=== PATIENT | male | born 1995 | race Caucasian/White ===

== ENCOUNTER 2017-03-05 15:31 | Inpatient (IN) | payer BC, OTHER ==
[~2017-03-05] VITALS: Ht 182.9 cm; Wt 87.5 kg
--- NOTE | 2017-03-05 20:35 | NUR ---
Pre-Admission Note: Patient assessed in intake office at 20:35 on 03/05/2017. Patient is ambulatory with steady gait, stable, A&OX4, speech is clear. Patient states that he is here to safely detox from benzodiazepines and opiates. Pt reports using 10mg Xanax and 300mg Roxicodone daily for 5 months; pt also reports intermittent use of heroin, methamphetamine, cocaine, and ETOH. Patient states that last use was on 03/03/17 when he was admitted to detox at [facility]. Patient noted to be guarded, anxious, fine tremor, pupils 5mm. VS: 143/92, 75, 98.4, 16, 100% Spo2 on RA. Patient reports 7/10 generalized pain at this time. Patient reports NKDA/NKFA. Patient instructed on unit protocol of vitals Q4H and COWS/CIWA assessments. Patient verbalized understanding and agreement. Patient also instructed on policy regarding destruction of any controlled substances/prescriptions brought to facility, and handling of all medications. Patient verbalized understanding and agreement. Will complete admission assessment when patient is brought up to unit.
--- NOTE | 2017-03-05 20:45 | NUR ---
ADMISSION NOTE: NEW ADMISSION IS A 21 YO MALE ON THE SERENITY FLOOR AT 20:45 ON 03/05/17; PRE-ADMISSION ASSESSMENT COMPLETED IN INTAKE OFFICE. UDS SPECIMEN COLLECTED IN INTAKE. VS: 143/92, 75, 98.4, 16, 100% SPO2 ON RA. COWS IS 11, CIWA IS 13: PT REPORTS ANXIETY, AGITATION, DIAPHORESIS, SENSITIVITY TO LIGHT AND SOUND, TREMOR, GENERALIZED PAIN, HEADACHE. HEIGHT IS 60 AND WEIGHT BY STANDING SCALE IS 193 LBS. PT REPORTS NKDA/NKFA. PT DENIES HAVING A PCP. PT ADMITTED UNDER THE CARE OF DR MEREDITH. PT REPORTS THE FOLLOWING SUBSTANCE USE: XANAX: PT REPORTS USING 10MG DAILY FOR 5 MONTHS. PATIENT REPORTS BEGINNING TO USE XANAX ON A DAILY BASIS 4 YEARS AGO. LAST USE WAS 10MG ON 03/03/17 BEFORE ADMITTED TO [facility] FOR DETOX. PT WAS ADMINISTERED ATIVAN AND PHENOBARBITAL WHILE INPATIENT AT [facility] FROM 03/03/17 TO 03/05/17. ROXICODONE: PT REPORTS TAKING 300MG DAILY FOR 5 MONTHS. PATIENT REPORTS FIRST USE OF ROXICODONE WAS 2 YEARS AGO. LAST USE WAS 300MG ON 03/03/17 BEFORE ADMITTED TO [facility] FOR DETOX. HEROIN: PT REPORTS USING < 0.5GM INTERMITTENTLY FOR 5 MONTHS WHEN ROXICODONE IS NOT AVAILABLE. COCAINE: PT REPORTS USING INTERMITTENTLY FOR 5 MONTHS. ETOH: PT REPORTS DRINKING A LITTLE INTERMITTENTLY FOR 5 MONTHS. METHAMPHETAMINE: PT REPORTS USING INTERMITTENTLY FOR 5 MONTHS. PT REPORTS SMOKING 10 CIGARETTES DAILY FOR 3 YEARS. WRITTEN SMOKING CESSATION EDUCATION PROVIDED. PT VERBALIZES UNDERSTANDING. PT REPORTS ADMISSION TO TREATMENT/DETOX: [facility] DETOX 03/03/17 TO 03/05/17. [facility] IN [place], [place] FOR 1 MONTH IN AUGUST 2016 PT REPORTS PMHX OF ANXIETY, DEPRESSION, WITHDRAWAL-INDUCED SZ (07/2016), LEFT ACL SURGICAL REPAIR (2012), RIGHT HAND COMPOUND FX (2010), NOSE FX (2010). HOME MEDICATIONS HAVE BEEN RECONCILED: PT REPORTS TAKING SEROQUEL 300MG HS BUT DID NOT BRING RX BOTTLE. PT IS AMBULATORY WITH STEADY GAIT. A&OX4 AND NOTED TO BE GUARDED, DIAPHORETIC AND FLUSHED WITH FINE TREMOR. SKIN ASSESSMENT: TWO SCABS ON RIGHT HAND, NO S/S INFECTION, PHOTO PLACED IN CHART. PT DENIES CURRENT OR HX OF SI/HI. LUNGS ARE CTA THROUGHOUT, RESPIRATIONS ARE EVEN AND UNLABORED. PT DENIES COUGH; LUNGS CTA. HEART SOUNDS REGULAR. BOWEL SOUNDS ACTIVE IN ALL QUADRANTS. ABDOMEN IS SOFT, NON-DISTENDED, NON-TENDER.
[2017-03-05 20:50] VITALS: BP 143/92
[2017-03-05] MEDS ORDERED: LORAZEPAM 1 MG TABLET PO PRN ×2 (22:15)
[2017-03-05] MEDS ORDERED: ACETAMINOPHEN 325 MG TABLET PO PRN (22:15)
[2017-03-05] MEDS ORDERED: LORAZEPAM 2 MG/1 ML VIAL IM PRN (22:15)
[2017-03-05] MEDS ORDERED: MIRALAX 17 GM POWD.PACK PO PRN (22:15)
[2017-03-05] MEDS ORDERED: LOPERAMIDE HCL 2 MG CAPSULE PO PRN ×2 (22:15)
[2017-03-05] MEDS ORDERED: ONDANSETRON 4 MG/2 ML VIAL IM PRN (22:15)
[2017-03-05] MEDS ORDERED: MAGNESIUM HYDROXIDE 30 ML LIQUID UDC PO PRN (22:15)
[2017-03-05] MEDS ORDERED: ONDANSETRON ODT 4 MG TAB.RAPDIS SL PRN (22:15)
[2017-03-05] MEDS ORDERED: BUPRENORPHINE HCL 2 MG TAB.SUBL SL PRN (22:15)
[2017-03-05] MEDS ORDERED: DICYCLOMINE HCL 20 MG TABLET PO PRN (22:15)
[2017-03-05] MEDS ORDERED: MAG HYDROX/AL HYDROX/SIMETH 30 ML LIQUID UDC PO PRN (22:15)
[2017-03-05] MEDS ORDERED: diphenhydrAMINE 50 MG CAPSULE PO PRN (22:15)
--- NOTE | 2017-03-05 22:22 | NUR ---
Subutex and Ativan ONCE: Upon admission, pt's COWS is 11 and CIWA is 13: pt complains of diaphoresis, myalgia, restlessness, tremor, bone and joint pain, anxiety, agitation, sensitivity to light and sound, headache. Administered Subutex 4mg ONCE and Ativan 2mg ONCE as ordered. Will continue to monitor.
[2017-03-05] MEDS ORDERED: QUET300T2 PO (22:28)
[2017-03-05 22:29] LABS: *AMPHETAMINE, URINE NEGATIVE (NEGATIVE); *BARBITURATE, URINE POSITIVE (NEGATIVE); *CANNABINOID, URINE POSITIVE (NEGATIVE); *COCCAINE, URINE NEGATIVE (NEGATIVE); *OPIATE, URINE NEGATIVE (NEGATIVE); *PHENCYCLIDINE SCREEN,URINE NEGATIVE (NEGATIVE)
[2017-03-05] MEDS ORDERED: LORAZEPAM 1 MG TABLET ONE (22:29)
[2017-03-05] MEDS ORDERED: LORAZEPAM 1 MG TABLET PO ONE (22:30)
[2017-03-05] MEDS ORDERED: BUPRENORPHINE HCL 2 MG TAB.SUBL SL ONE ×2 (22:30)
--- NOTE | 2017-03-05 22:52 | NUR ---
Subutex Reassessment: COWS score decreased from 11 to 5 thirty minutes after Subutex 4mg SL ONCE administration. Pt denies pain at this time and reports decrease in diaphoresis and restlessness.
--- NOTE | 2017-03-05 23:22 | NUR ---
Ativan Reassessment: Patient reports mild decrease in tremor, diaphoresis, anxiety. CIWA decreased from 13 to 10 one hour after Ativan 2mg PO ONCE administration. Pt refuses PRN Clonidine and PRN Vistaril for reducing anxiety and diaphoresis.
[2017-03-05 23:36] LABS: ETHANOL < 3 MG/DL (0-0)
[2017-03-05 23:45] LABS: ALANINE AMINOTRANSFERASE 21 U/L (16-63); ALKALINE PHOSPHATASE 82 U/L (50-136); ASPARTATE AMINOTRANSFERASE 15 U/L (15-37); BILIRUBIN,TOTAL 0.4 mg/dL (0.2-1.0); CARBON DIOXIDE 28 mmol/L (21-32); CHLORIDE 105 mmol/L (98-107); GLUCOSE 112 mg/dL (74-106); MAGNESIUM 2.1 mg/dL (1.8-2.4); POTASSIUM 3.2 mmol/L (3.5-5.1); TOTAL PROTEIN, SERUM 7.3 g/dL (6.4-8.2); UREA NITROGEN, BLOOD 12 mg/dL (7-18)
[2017-03-05 23:46] LABS: BASOPHILS % (AUTO) 0.3 % (0.0-2.0); EOSINOPHILS # (AUTO) 0.2 K/uL (0.0-0.7); EOSINOPHILS % (AUTO) 1.5 % (0.0-7.0); HEMATOCRIT 43.1 % (40-50); HEMOGLOBIN 14.9 G/DL (14.0-18.0); LYMPHOCYTES # (AUTO) 2.5 K/UL (0.8-4.8); LYMPHOCYTES % (AUTO) 24.4 % (20.5-51.5); MEAN CORPUSCULAR HEMOGLOBIN 29.6 UUG (27.0-31.0); MEAN CORPUSCULAR HGB CONC 35 g/dL (32.0-37.0); MEAN CORPUSCULAR VOLUME 85.8 FL (82.0-92.0); MONOCYTES # (AUTO) 0.4 K/UL (0.1-1.30); MONOCYTES % (AUTO) 4.1 % (0.0-11.0); NEUTROPHILS # (AUTO) 7.3 K/UL (1.8-8.9); NEUTROPHILS % (AUTO) 69.7 % (38.5-71.5); PLATELET COUNT (AUTO) 311 K/UL (150-450); RED BLOOD CELL COUNT(AUTO) 5.03 MIL/UL (4.7-6.1); WHITE BLOOD COUNT (AUTO) 10.4 K/UL (4.0-11.2)
[2017-03-05 23:56] LABS: THYROID STIMULATING HORMONE 0.805 mIU/mL (0.358-3.740)
[2017-03-06] VITALS: BP 101/51
[2017-03-06] MEDS: METHOCARBAMOL 750 MG TABLET PO PRN ×2 (01:24→08:54)
--- NOTE | 2017-03-06 01:24 | NUR ---
PRN Robaxin: Patient complains of myalgia in back and legs. Administered PRN Robaxin as ordered. Will continue to monitor.
[2017-03-06] MEDS ORDERED: HYDROXYZINE PAMOATE 25 MG CAPSULE ONE (01:33)
[2017-03-06] MEDS ORDERED: METHOCARBAMOL 750 MG TABLET ONE (01:33)
--- NOTE | 2017-03-06 02:25 | NUR ---
PRN Reassessment: Patient reports decrease in myalgia. Patient denies pain at this time. PRN Robaxin effective. Will continue to monitor.
[2017-03-06 04:00] VITALS: BP 149/85
[2017-03-06] MEDS: CLONIDINE HCL 0.1 MG TABLET PO PRN ×2 (04:48→12:38)
--- NOTE | 2017-03-06 04:48 | NUR ---
PRN Clonidine: Patient complains of increased anxiety. Administered PRN Clonidine as ordered. Will continue to monitor.
[2017-03-06] MEDS ORDERED: CLONIDINE HCL 0.1 MG TABLET ONE (04:55)
--- NOTE | 2017-03-06 05:50 | NUR ---
PRN Reassessment: Patient is in bed with eyes closed. Respirations are even and unlabored. No s/s of acute distress noted. PRN Clonidine effective AEB pt's ability to rest. Will continue to monitor.
[2017-03-06] MEDS ORDERED: POTASSIUM CHLORIDE 20 MEQ TAB.PRT.SR PO ONE ×2 (06:00→09:00)
--- NOTE | 2017-03-06 06:53 | NUR ---
End of Shift Note: Pt is a 21 y/o male admitted to [facility] last night for medically-supervised withdrawal from benzodiazepines and opiates. PMHx: anxiety, depression, withdrawal-induced SZ (07/2016), left ACL surgical repair (2012), right hand fx and nose fx (2010). Full code status. Pt reports NKDA/NKFA. Pt is on a regular diet. Pt reports taking Xanax 10mg/day and Roxicodone 300mg/day for 5 months; pt also reports intermittent use of cocaine, methamphetamine, ETOH, and heroin. Pt is to start 5-day Subutex and Ativan tapers today. One-time orders for Subutex and Ativan received and administered for COWS=11, CIWA=13. Subutex was effective and reduced COWS=5, Ativan reduced CIWA=10 but pt refused Vistaril for anxiety not relieved by Ativan. PRN Robaxin was given for myalgia and PRN Clonidine was given for anxiety. Last COWS=3, CIWA=4 at 04:00. V/S stable throughout shift, with increased BP of 143/92 upon admission and 149/85 at 04:00, and HR of 95 at 04:00. Total fluid intake this shift: 1091 ml; output: urine x 2 and BM x 0. Pt is currently in bed, slept 1 hour this shift, all needs have been attended and met. Pt endorsed to day shift nurse.
[2017-03-06 08:00] VITALS: BP 150/92
--- NOTE | 2017-03-06 08:00 | NUR ---
START OF SHIFT Pt 21 y/o male admitted for bzo/ opiate use d/o. Pt received in room on bed awake watching television. Pt alert and oriented to name, place, and time. Perrla. Skin warm and slightly moist to touch. Respirations even and unlabored. Bilateral hand tremors noted. It was reported that pt slept for 1 hours last night. Bed on lowest position with side rails x2 up for safety. Call light within reach. No distress noted.
--- NOTE | 2017-03-06 08:45 | NUR ---
PRN Pt with c/o generalized body aches 03/22. Robaxin po prn per MD order given and tolerated well.
--- NOTE | 2017-03-06 08:45 | NUR ---
PRN Pt with c/o stomach cramps. Bentyl po prn per MD order.
[2017-03-06] MEDS: MULTIVITAMINS,THERAPEUTIC TABLET PO SCH (08:54)
[2017-03-06] MEDS: LIDOCAINE 5% PATCH TD SCH (08:54)
[2017-03-06] MEDS ORDERED: TUBERCULIN,PURIF.PROT.DERIV. 5 TU/0.1 ML TEST ID ONE (09:00)
[2017-03-06] MEDS ORDERED: PNEUMOCOCCAL 23-VAL P-SAC VAC 0.5 ML VIAL IM ONE (09:00)
[2017-03-06] MEDS ORDERED: GABAPENTIN 300 MG CAPSULE PO SCH (09:00)
--- NOTE | 2017-03-06 09:45 | NUR ---
PRN EVAL Pt states is not experiencing any stomach cramps at this time.
--- NOTE | 2017-03-06 09:45 | NUR ---
MINAL SALMON Pt observed in room on bed watching television.
[2017-03-06] MEDS: BUPRENORPHINE HCL 2 MG TAB.SUBL SL SCH ×4 (09:56→21:20)
[2017-03-06] MEDS: LORAZEPAM 1 MG TABLET PO SCH ×4 (09:56→21:21)
[2017-03-06 12:00] VITALS: BP 150/92
--- NOTE | 2017-03-06 12:38 | NUR ---
PRN Pt states feels anxious. Catapres po prn per MD order given and tolerated well.
--- NOTE | 2017-03-06 13:38 | NUR ---
MINAL SALMON Pt observed in room on bed watching television.
[2017-03-06] MEDS: GABAPENTIN 300 MG CAPSULE PO SCH ×2 (14:53→21:21)
[2017-03-06 16:00] VITALS: BP 120/76
--- NOTE | 2017-03-06 18:43 | NUR ---
END OF SHIFT Pt 21 y/o male admitted for bzo / opiate use d/o. Pt alert and oriented to name, place, and time. Perrla. Skin warm and slightly moist to touch. Respirations even and unlabored. Bilateral hand tremors noted. Pt mostly isolative to room this morning, but did attend group activity in the afternoon. Pt was seen by Dr. Paz. Pt medication compliant and tolerated well. No ASE noted. Bed on lowest position with side rails x2 up for safety. Call light within reach. No distress noted at this time.
--- NOTE | 2017-03-06 19:20 | NUR ---
START OF SHIFT Received report from day shift nurse. Pt is lying in bed resting. He is a 21 yo male admitted to [facility] on 03/05 for BZD and opioid dependence. He is A&O x4 and ambulatory. NKA, full code status, and on a regular diet. He has a PMH of seizure r/t withdrawal 07/2016, left ACL surgery 2012, R hand compound fracture 2010, nose fracture, anxiety, and depression. ON admission he reported using Xanax 10mg per day and roxycodone 30mg per day. He intermittently uses cocaine, methamphetamine, ETOH, and heroin. Pt started a 5 day Ativan and 5 day Subutex taper on 03/06. Upon entering pt's room he reports hot and cold flashes, pounding heart, headache, and muscle aches. Tapers due tonight with PRN's available for management of withdrawal symptoms. Fall and seizure precautions in place. Bed is down with call light in reach. . Addendum: 03/07/17 at 2000 by TRACEY FAIRBANKS RN Incorrect entry date.
[2017-03-06 20:00] VITALS: BP 117/73
--- NOTE | 2017-03-06 20:00 | NUR ---
Start of Shift Note: Report received from day shift nurse. Pt is a 21 yo male admitted on 03/05/17 for medically-supervised withdrawal from benzodiazepines and opiates. Pt reports taking 10mg Xanax and 300mg Roxicodone daily for 5 months; pt also reports intermittent use of cocaine, methamphetamine, ETOH, and heroin. Pt is on day 1 of 5-day Subutex and Ativan tapers. Pt received with last COWS=5/CIWA=1, and PRNs Bentyl, Robaxin, and Clonidine were given during day shift. Pt is full code status. Pt reports NKDA/NKFA. Pt is on a regular diet. PMHx: anxiety, depression, withdrawal-induced SZ (07/2016), left ACL surgical repair (2012), right hand fx and nose fx (2010). Pt received in room, and reports chills, stomach cramps, bone aches, anxiety, tremor, restlessness. Bed is in low position and locked, side rails up x2, call light within reach. Will continue to monitor.
[2017-03-06] MEDS ORDERED: QUETIAPINE FUMARATE 100 MG TABLET PO SCH (21:00)
[2017-03-06] MEDS: QUETIAPINE FUMARATE 200 MG TABLET PO SCH (22:34)
--- NOTE | 2017-03-06 22:35 | NUR ---
Seroquel Late: Patient requests to take Seroquel late so that he has time to shower and prepare for bed. 21:00 scheduled Seroquel administered late as per pt request.
[2017-03-07] VITALS (9 sets, daily range): BP systolic 101–146; BP diastolic 47–87
--- NOTE | 2017-03-07 04:00 | NUR ---
COWS/CIWA Deferred: COWS/CIWA is deferred for sleep. V/S stable. Bed is in low position and locked, side rails up x2, call light within reach. Will continue to monitor. Addendum: 03/07/17 at 0503 by TERESA SERRATO RN Amended: Links added.
[2017-03-07 05:09] LABS: HEPATITIS B SURFACE AG Negative (Negative)
--- NOTE | 2017-03-07 07:03 | NUR ---
End of Shift Note: Pt is a 21 yo male admitted to [facility] on 03/05/17 for medically-supervised withdrawal from benzodiazepines and opiates. PMHx: anxiety, depression, withdrawal-induced seizure (07/2016), left ACL surgical repair (2012), right hand and nose fx (2010). NKDA/NKFA, full code, regular diet. Pt reports taking 10mg Xanax and 300mg Roxicodone daily for 5 months; pt also reports occasional use of cocaine, methamphetamine, ETOH, and heroin. Pt is to start the second day of 5-day Subutex and Ativan tapers. Scheduled medication regime effectively managed s/s of withdrawal this shift, and no PRN medications were necessary. Last COWS=4, CIWA=2 at 00:00. V/S stable throughout shift, with increased HR of 90 at 00:00. Total fluid intake this shift: 1450 ml; output: urine x 2 and BM x 0. Pt is currently in bed and slept 8 hours this shift. All needs have been attended and met. Pt endorsed to day shift nurse. Addendum: 03/07/17 at 0713 by TERESA SERRATO RN Correction: patient slept 4 hours
--- NOTE | 2017-03-07 08:00 | NUR ---
START OF SHIFT Pt 21 y/o male admitted for bzo/ opiate use d/o. Pt received in room on bed with eyes closed resting, but easily arousable to name. Pt alert and oriented to name, place, and time. Perrla. Skin warm and slightly moist to touch. Respirations even and unlabored. Bilateral hand tremors noted. Bed on lowest position with side rails x2 up for safety. Call light within reach. No distress noted at this time.
[2017-03-07 08:29] LABS: CREATININE 0.9 mg/dL (0.6-1.3); PHOSPHOROUS 4.2 mg/dL (2.5-4.9); POTASSIUM 3.9 mmol/L (3.5-5.1)
[2017-03-07] MEDS: LIDOCAINE 5% PATCH TD SCH (08:51)
[2017-03-07] MEDS: MULTIVITAMINS,THERAPEUTIC TABLET PO SCH (08:52)
[2017-03-07] MEDS: GABAPENTIN 300 MG CAPSULE PO SCH ×2 (08:52→15:16)
[2017-03-07] MEDS: LORAZEPAM 1 MG TABLET PO SCH ×3 (08:52→21:23)
[2017-03-07] MEDS: BUPRENORPHINE HCL 2 MG TAB.SUBL SL SCH ×3 (08:52→21:24)
[2017-03-07] MEDS ORDERED: LORAZEPAM 1 MG TABLET PO ONE ×2 (12:00→17:00)
--- NOTE | 2017-03-07 17:13 | NUR ---
PRN Pt with ciwa=7. Tremors of bilateral hands noted. Pt with c/o anxiety. Pt states he feels uneasy, waking up in shakes. Dr. Paz made aware with new order for ativan 2mg po x1 dose.
--- NOTE | 2017-03-07 18:31 | NUR ---
PRN EVAL Pt with ciwa =4.
--- NOTE | 2017-03-07 18:50 | NUR ---
END OF SHIFT Pt 21 y/o male admitted for bzo opiate dependence. Pt alert and oriented to name, place, and time. Perrla. Skin warm and slightly moist to touch. Respirations even and unlabored. Pt observed isolative to room with minimal peer interaction throughout the day. pt did not attend group activity today. Pt was seen by Dr. Paz today. Medication compliant and tolerated well. No ASE noted. Bed on lowest position with side rails x 2 for safety. Call light wtihin reach. No distress noted at this time.
--- NOTE | 2017-03-07 19:20 | NUR ---
START OF SHIFT Received report from day shift nurse. Pt is lying in bed resting. He is a 21 yo male admitted to [facility] on 03/05 for BZD and opioid dependence. He is A&O x4 and ambulatory. NKA, full code status, and on a regular diet. He has a PMH of seizure r/t withdrawal 07/2016, left ACL surgery 2012, R hand compound fracture 2010, nose fracture, anxiety, and depression. ON admission he reported using Xanax 10mg per day and roxycodone 30mg per day. He intermittently uses cocaine, methamphetamine, ETOH, and heroin. Pt started a 5 day Ativan and 5 day Subutex taper on 03/06. Upon entering pt's room he reports hot and cold flashes, pounding heart, headache, and muscle aches. Tapers due tonight with PRN's available for management of withdrawal symptoms. Fall and seizure precautions in place. Bed is down with call light in reach. .
[2017-03-07] MEDS: METHOCARBAMOL 750 MG TABLET PO PRN (19:29)
[2017-03-07] MEDS: CLONIDINE HCL 0.1 MG TABLET PO PRN (19:30)
[2017-03-07] MEDS: IBUPROFEN 600 MG TABLET PO PRN (19:30)
--- NOTE | 2017-03-07 19:30 | NUR ---
PRN Clonidine, Robaxin, and Motrin Pt is lying in bed and reports "my heart feels like its pounding". B/P 143/80 and HR 107. He also reports generalized muscle aches / and headache. Pt denies dizziness or SOB. PRN Clondine, Robaxin, and Motrin administered Addendum: 03/07/17 at 2004 by TRACEY FAIRBANKS RN JOHN 6 and JÚNIOR 7
--- NOTE | 2017-03-07 20:30 | NUR ---
PRN Clonidine, Robaxin, and Motrin reassessment PRN Clonidine, Robaxin, and Motrin effective. Pt is lying in bed resting with eyes closed. Respirations even and unlabored. B/P 134/62 and HR 94. COWS and CIWA deferred due to sleep.
[2017-03-07] MEDS ORDERED: GABAPENTIN 300 MG CAPSULE PO SCH (21:00)
[2017-03-07] MEDS: QUETIAPINE FUMARATE 200 MG TABLET PO SCH (23:30)
--- NOTE | 2017-03-07 23:30 | NUR ---
Late Seroquel Administration Pt requested to have Seroquel closer to bed time.
[2017-03-07] MEDS: HYDROXYZINE PAMOATE 25 MG CAPSULE PO PRN (23:37)
--- NOTE | 2017-03-07 23:38 | NUR ---
PRN Vistaril administration Pt c/o feeling anxious, with chills, and sweating. B/P 146/80 and HR 111. PRN Vistaril administered.
[2017-03-08] VITALS (7 sets, daily range): BP systolic 101–146; BP diastolic 59–83
--- NOTE | 2017-03-08 00:41 | NUR ---
RN note one-time Ativan Pt noted to be anxious and verbalized "I keep on jolting and waking up" Restlessness noted. Contacted Dr. Paz and he ordered a one-time of Ativan 2 mg PO. Primary nurse to administer.
[2017-03-08] MEDS ORDERED: LORAZEPAM 1 MG TABLET ONE (00:44)
[2017-03-08] MEDS ORDERED: LORAZEPAM 1 MG TABLET PO ONE (00:45)
--- NOTE | 2017-03-08 00:49 | NUR ---
One time Ativan Administered per MD orders. COWS 7 and CIWA 6.
--- NOTE | 2017-03-08 01:49 | NUR ---
One time Ativan reassessment One time Ativan effective. Pt is lying comfortably in bed resting with eyes closed. Respirations even and unlabored. Safety measures in place.
--- NOTE | 2017-03-08 07:12 | NUR ---
END OF SHIFT Report provided to day shift nurse. Pt is lying in bed resting. He is a 21 yo male admitted to [facility] on 03/05 for BZD and opioid dependence. He is A&O x4 and ambulatory. NKA, full code status, and on a regular diet. He has a PMH of seizure r/t withdrawal 07/2016, left ACL surgery 2012, R hand compound fracture 2010, nose fracture, anxiety, and depression. On admission he reported using Xanax 10mg per day and roxycodone 30mg per day. He intermittently uses cocaine, methamphetamine, ETOH, and heroin. Pt started a 5 day Ativan and 5 day Subutex taper on 03/06. PRN Clonidine, Robaxin, Motrin, Vistaril, and one time Ativan administered. Pt has occasional mild tachycardia and difficulty relaxing to fall asleep. Last COWS 7 and CIWA 6. He drank 1484mL and slept for 8 hours. Fall and seizure precautions in place. Bed is down with call light in reach.
--- NOTE | 2017-03-08 07:32 | NUR ---
START OF SHIFT NOTE: Received report from hourly shift nurse. Pt is a 21 yo male admitted 03/05/17 for BZD and opioid dependence. Pt is on a 5 day Subutex and 5 day Ativan taper. Tolerating well. Color good, skin warm and dry. Respirations even and unlabored. Resting in bed at this time. Safety precautions observed. Call light within reach.
[2017-03-08] MEDS: MULTIVITAMINS,THERAPEUTIC TABLET PO SCH (08:28)
[2017-03-08] MEDS: LIDOCAINE 5% PATCH TD SCH (08:29)
[2017-03-08] MEDS: GABAPENTIN 300 MG CAPSULE PO SCH ×3 (08:29→20:42)
[2017-03-08] MEDS ORDERED: BUPRENORPHINE HCL 2 MG TAB.SUBL SL SCH (09:00)
[2017-03-08] MEDS ORDERED: LORAZEPAM 1 MG TABLET PO SCH (09:00)
--- NOTE | 2017-03-08 09:48 | NUR ---
VSS COWS 8 CIWA 8 c/o anxiety, sweating, muscle aches
[2017-03-08] MEDS: LORAZEPAM 1 MG TABLET PO SCH ×3 (13:46→20:43)
[2017-03-08] MEDS: METHOCARBAMOL 750 MG TABLET PO PRN (15:10)
[2017-03-08] MEDS: BACLOFEN 10 MG TABLET PO SCH ×2 (15:10→20:42)
[2017-03-08] MEDS: BUPRENORPHINE HCL 2 MG TAB.SUBL SL SCH ×2 (15:10→20:42)
--- NOTE | 2017-03-08 15:12 | NUR ---
Pt c/o muscle aches. Robaxin 750mg po prn given.
--- NOTE | 2017-03-08 16:15 | NUR ---
Pt states muscle aches improved after Robaxin po prn
--- NOTE | 2017-03-08 18:57 | NUR ---
START OF SHIFT NOTE: Patient endorsed by day shift nurse in stable condition. Report received. Patient is a 21 years old male admitted to [facility] on 03/05/2017 for Benzo/Opioid dependence, placed on 5 day Ativan and 5 day Subutex Taper. Patient tolerated well. Patient remains with therapeutic plan, medications, and diet regime. NKA, Regular Diet, Full Code, Seizures and Fall Precautions. The patient reports a History of Seizures r/t withdrawal. At the time of endorsement, patient is in the room is alert and oriented x4. Speech is clear and soft. COWS 5, CIWA 6. The patient reported the following symptoms of withdrawal: anxiety, agitation, nervousness, diaphoresis, abdominal cramps, headache, restless legs, tremors, and fatigue. Patient denies SI/HI. VS WNL. Breathing is even and unlabored. Patient denies SOB and chest pain. Abdomen is soft, non-distended. Bowel Sounds is active in all x 4 quadrants. Last BM was "03/08/17 at 11:00". Patient has healed scab on the right hand. Skin is warm and moist by tough. Encouraged to fluids intake, as tolerated. Encouraged to attend group activities. All needs met. Safety measures in place by hospital policy: Call light within reach, bed in the lowest position and lock, padded rails up x2. Will continue to monitor closely.
--- NOTE | 2017-03-08 18:57 | NUR ---
END OF SHIFT NOTE: Report given to nightclub manager nurse. Pt is a 21 yo male admitted 03/05/17 for BZD and opioid dependence. Pt is on a 5 day Subutex and 5 day Ativan taper. Tolerating well. Color good, skin warm and dry. Respirations even and unlabored. Vital signs have remained stable throughout shift. Last COWS 4 CIWA 6 @ 1700. Robaxin 750mg po prn @ 1500. Resting in bed at this time. Safety precautions observed. Call light within reach.
[2017-03-08] MEDS: QUETIAPINE FUMARATE 200 MG TABLET PO SCH (20:42)
[2017-03-09] VITALS (7 sets, daily range): BP systolic 112–148; BP diastolic 62–84
--- NOTE | 2017-03-09 07:13 | NUR ---
END OF SHIFT NOTE: Patient endorsed to day shift nurse in stable condition. Report given. Patient is a 21 years old male admitted to [facility] on 03/05/2017 for Benzo/Opioid dependence, placed on 5 day Ativan and 5 day Subutex Taper. Patient tolerated well. Patient remains with therapeutic plan, medications, and diet regime. NKA, Regular Diet, Full Code, Seizures and Fall Precautions. The patient reports a History of Seizures r/t withdrawal on " 07/2016". During the mine shifter COWS decreased from 5 to 4, CIWA decreased from 6 to 3. Patient presented with the following symptoms of withdrawal: Anxiety, agitation, nervousness, diaphoresis, abdominal cramps, N/V, mild headache, restless legs, tremors, and fatigue. Patient denies SI/HI. VS WNL. Breathing is even and unlabored. Patient denies SOB and chest pain. Patient has healed scab on the right hand. Skin is warm and moist by tough. Encouraged to fluids intake, as tolerated. Encouraged to attend group activities. Patient slept 8 hours 30 minutes, intake 988 ml, voided x3, stool x1. All needs met. Safety measures in place by hospital policy: Call light within reach, bed in the lowest position and lock, padded rails up x2.
--- NOTE | 2017-03-09 07:40 | NUR ---
START OF SHIFT NOTE Received report from night nurse, 21 year old male admitted for Benzo/Opioid dependence. NKA, full code status, and on a regular diet. Pt has a PMH of seizure r/t withdrawal 07/2016, left ACL surgery 2012, R hand compound fracture 2010, nose fracture, anxiety, and depression. ON admission pt reported using Xanax 10mg per day and Roxicodone 30mg per day. Pt also reported intermittently uses of cocaine, methamphetamine, ETOH, and heroin. Pt cont on 5 day Ativan and 5 day Subutex taper. Per endorsement pt did not receive any PRN medication, last CIWA-3, COWS-4, slept for 8 hours. Patient received awake, alert and oriented x4, educated regarding plan of care for the day and medication regimen. Safety measures in place. call light kept with in reach, will continue to monitor.
[2017-03-09] MEDS: MULTIVITAMINS,THERAPEUTIC TABLET PO SCH (08:28)
[2017-03-09] MEDS: BUPRENORPHINE HCL 2 MG TAB.SUBL SL SCH ×4 (08:28→20:40)
[2017-03-09] MEDS: BACLOFEN 10 MG TABLET PO SCH (08:28)
[2017-03-09] MEDS: GABAPENTIN 300 MG CAPSULE PO SCH ×2 (08:28→15:26)
[2017-03-09] MEDS: LORAZEPAM 1 MG TABLET PO SCH ×2 (08:28→12:58)
[2017-03-09] MEDS: LIDOCAINE 5% PATCH TD SCH (08:30)
[2017-03-09] MEDS ORDERED: LORAZEPAM 1 MG TABLET PO SCH ×3 (09:00→21:00)
[2017-03-09] MEDS ORDERED: BUPRENORPHINE HCL 2 MG TAB.SUBL SL SCH (09:00)
[2017-03-09] MEDS ORDERED: BACLOFEN 10 MG TABLET PO SCH (15:00)
[2017-03-09] MEDS: BACLOFEN 20 MG TABLET PO SCH ×2 (15:26→20:39)
[2017-03-09] MEDS: DICYCLOMINE HCL 20 MG TABLET PO SCH ×2 (15:26→20:39)
--- NOTE | 2017-03-09 18:25 | NUR ---
MD communication Pt called nurses station and stated that he felt like he was going to "have a seizure". VS: 145/[address] Paz notified, ordered ativan 2mg PO x 1 now. Orders entered, unable to enter orders. Pt placed on a 1:1 for safety.
[2017-03-09] MEDS: METHOCARBAMOL 750 MG TABLET PO PRN (18:27)
[2017-03-09] MEDS: CLONIDINE HCL 0.1 MG TABLET PO PRN (18:28)
--- NOTE | 2017-03-09 18:28 | NUR ---
PRN CLONIDINE/ROBAXIN Pt reported anxiety, agitation, sweats and chills, muscle aches. Administered PRN Clonidine 0.1mg Po/ Robaxin 750mg Po as ordered. Safety measures in place, Call light within reach. Will cont to monitor.
[2017-03-09] MEDS ORDERED: LORAZEPAM 1 MG TABLET PO ONE (18:30)
--- NOTE | 2017-03-09 18:35 | NUR ---
PRN ATIVAN x1 DOSE Pt appears anxious and restless and states that feels like is going to have a seizure CIWA score noted 12. MD notified new order to give Ativan 2mg x1 dose now. Administered medication as ordered. All safety measures in place, call light within reach. Will cont to monitor.
--- NOTE | 2017-03-09 19:12 | NUR ---
END OF SHIFT NOTE Gave report to night nurse, 21 year old male admitted for Benzo/Opioid dependence. NKA, full code status, and on a regular diet. Pt has a PMH of seizure r/t withdrawal 07/2016, left ACL surgery 2012, R hand compound fracture 2010, nose fracture, anxiety, and depression. ON admission pt reported using Xanax 10mg per day and Roxicodone 30mg per day. Pt also reported intermittently uses of cocaine, methamphetamine, ETOH, and heroin. Pt cont on 5 day Ativan and 5 day Subutex taper.Patient encouraged adequate PO fluid intake as tolerated. Encouraged to attend group therapies/sessions to learn new coping skills to prevent relapse denies any SI/HI. Last CIWA- pt received PRN medications and endorsed to night nurse to reassess the pt. All safety measures in place, cont with 1:1 for safety. Call light within reach. Pt endorsed to night nurse in stable condition.
--- NOTE | 2017-03-09 19:30 | NUR ---
Start of Shift / PRN Medication Reassessment Patient Received. Patient is in his room, awake, alert and verbally responsive. Breathing even and non labored. No signs of pain or discomfort noted. Patient remains on 1:1 for seizure precautions. Patient is a 21 year old male, admitted for 03/05/17 for ETOH and Benzo Dependence, under the care of Dr. Paz. Patient is currently receiving a 5 day Ativan and 5 day Subutex taper. Patient is able to verbalize no known allergies, full code, following a regular diet, placed on fall and seizure precautions, remains on 1:1, skin noted with scabs to the right hand. Past Medical history was noted as: Anxiety, Depression, Left ACL surgery, Right hand compound fracture, and nose fracture, history of seizure due to W/d in 2016. Per endorsement, patient verbalized of increased feelings of having a seizure. Patient was given PRN Clonidine, Robaxin, and Ativan 2mg for CIWA of 12 at 1835. Upon rounds, patient was noted in bed with Tech noted to be within arms reach. Patient verbalized Im feeling much better now. I was feeling like I felt back when I did have the seizure last year. I felt really sweaty and light headed. PRN Ativan 2mg, Clonidine, and Robaxin all noted to be effective. CIWA noted to be 5. All needs attended to promptly. Will continue plan of care as ordered.
[2017-03-09] MEDS: QUETIAPINE FUMARATE 200 MG TABLET PO SCH (20:39)
[2017-03-09] MEDS: IBUPROFEN 600 MG TABLET PO PRN (20:39)
--- NOTE | 2017-03-09 20:40 | NUR ---
PRN Medication Administration Patient noted in bed c/o pain due to headache. Patient verbalized the fire alarm gave me a headache. Im already prone to migraines and seizures. The fire alarm did not help the situation. PRN Motrin administered with all routine 2100 medications. CIWA noted to be 15. MD made aware. DATABASES SOFTWARE CONSULTANT remains at bedside within arms reach. All needs attended to promptly. Will continue to monitor.
[2017-03-09] MEDS ORDERED: GABAPENTIN 300 MG CAPSULE PO SCH (21:00)
--- NOTE | 2017-03-09 21:30 | NUR ---
PRN Medication reassessment Patient noted in bed, watching TV, and eating a sandwich. Patient verbalized my headache went away and I dont feel so anxious. PRN Motrin noted to be effective. CIWA noted to be 2. All needs attended to promptly. PERSONALIZED LIVING MANAGER NURSE remains at bedside within arms reach. Will continue to monitor.
[2017-03-10] VITALS (7 sets, daily range): BP systolic 108–126; BP diastolic 62–79
--- NOTE | 2017-03-10 07:33 | NUR ---
End of Shift Patient was given PRN Ativan for CIWA of 10 with medication noted to be effective. Reassessment CIWA noted to be 3. Patient was also given PRN Benadryl with medication noted to be effective. Patient was noted to sleep 6 hours. Lab resulted positive for occult stool with MD aware. No new orders due to patient previously diagnosed with Inflammatory Bowel Disease. All needs attended to promptly. Will continue plan of care as ordered.
--- NOTE | 2017-03-10 07:47 | NUR ---
BEGINNING OF SHIFT Patient endorsement report received from grassland conservationist nurse, all pertinent information discussed. patient is a 21 year old male admitted on 03/05/2017 with admitting Dx: Opiate/BZO dependence. Patient currently with ongoing 5 Day subutex and 5 day Ativan taper as ordered, no ASE noted. will continue to monitor closely for s/sx of withdrawal. Patient Continues with 1:1 sitter for seizure precautions. no seizure activity as per grassland conservationist. Fall and seizure precautions in place at all times. per grassland conservationist patient received PRN: Ibuprofen as ordered, medications effective as per grassland conservationist. Patient slept for 6 hours. Patient received awake, alert and oriented x4, educated regarding plan of care for the day and medication regimen. safety measures in place. call light kept with in reach, will continue to monitor.
[2017-03-10] MEDS: LORAZEPAM 1 MG TABLET PO SCH ×3 (08:54→21:15)
[2017-03-10] MEDS: BACLOFEN 20 MG TABLET PO SCH ×3 (08:54→21:26)
[2017-03-10] MEDS: MULTIVITAMINS,THERAPEUTIC TABLET PO SCH (08:54)
[2017-03-10] MEDS: GABAPENTIN 300 MG CAPSULE PO SCH ×3 (08:54→21:26)
[2017-03-10] MEDS: DICYCLOMINE HCL 20 MG TABLET PO SCH ×3 (08:54→21:27)
[2017-03-10] MEDS: BUPRENORPHINE HCL 2 MG TAB.SUBL SL SCH ×3 (08:54→21:27)
[2017-03-10] MEDS: LIDOCAINE 5% PATCH TD SCH (08:57)
[2017-03-10] MEDS ORDERED: LORAZEPAM 1 MG TABLET PO SCH (09:00)
[2017-03-10] MEDS ORDERED: BUPRENORPHINE HCL 2 MG TAB.SUBL SL SCH (09:00)
[2017-03-10] MEDS: CLONIDINE HCL 0.1 MG TABLET PO PRN (16:26)
[2017-03-10] MEDS: METHOCARBAMOL 750 MG TABLET PO PRN (16:26)
--- NOTE | 2017-03-10 16:26 | NUR ---
PRN ROBAXIN/CLONIDINE Patient reports muscle aches and increase in anxiety, provided patient with non pharmacological interventions with no relief, encouraged to express feelings and provided with calming reassurance, administered Robaxin as ordered for muscle aches and clonidine as ordered for anxiety, will monitor effectiveness of medication. safety measures in place.
--- NOTE | 2017-03-10 17:26 | NUR ---
CLONIDINE/ROBAXIN REASSESSMENT Patient reports medication effective, no c/o muscle aches, reports feeling less anxious, safety measures in place. will continue to monitor.
--- NOTE | 2017-03-10 19:01 | NUR ---
END OF SHIFT Patient alert and oriented x4, vital signs stable during shift. Patient with admitting Dx Opiate/BZO dependence. Patient continues on Ativan and Subutex taper as ordered, well tolerated, no ASE Noted. Patients 1:1 sitter discontinued during shift. Fall and Seizure precautions continue to be in place and observed at all times. 0900 assessment patient presented with: tremors that can be felt but not seen, yawning, irritability, anxiety, mild agitation with cow score of: 4 and ciwa score of: 5. 1300 assessment patient presented with: c/o chills, mild bone and joint aches, tremors that can be felt but not seen, yawning, irritability, and anxiety, and barely sweating and mild anxiety with cow score of: 6 and ciwa score of: 7. 1700 assessment patient presented with: c/o chills, mild bone and joint aches, tremors that can be felt but not seen, yawning, irritability, and anxiety, and barely sweating and mild anxiety with cow score of: 6 and ciwa score of: 7. Patient was administered PRN: clonidine as ordered for anxiety and Robaxin as ordered for muscle aches, medications effective one hour post administration. Patient encouraged adequate PO fluid intake as tolerated. Encouraged to attend group therapies/sessions to learn new coping skills to prevent relapse denies any SI/HI. During shift patient noted tearful, after speaking to her mother, patient provided with calming reassurance, with some relief. Safety measures in place. call light kept with in reach. all needs met and rendered. patient endorsed to police shift commander nurse, all pertinent information discussed.
--- NOTE | 2017-03-10 19:12 | NUR ---
Start of shift note Received report from day shift nurse. Pt is a 20 yo male, A+Ox4, presenting to [facility] for Opiate/Benzo dependence. Pt has NKA, is Full code status, and on Regular diet. Pt is on Fall and Seizure precautions. Pt has HX of Anxiety, depression, Seizure, Left ACL SX, nose FX, and Right hand compound FX. Pt is on 5 day Ativan and Subutex tapers, tolerated well. No s/s of distress noted at this time. Respirations even and unlabored. Will continue to monitor.
[2017-03-10] MEDS: QUETIAPINE FUMARATE 200 MG TABLET PO SCH (21:26)
[2017-03-11 00:16] VITALS: BP 116/70
[2017-03-11] MEDS: QUETIAPINE FUMARATE 200 MG TABLET PO SCH ×2 (00:52→20:57)
[2017-03-11 04:30] VITALS: BP 117/66
--- NOTE | 2017-03-11 06:58 | NUR ---
End of shift note Pt is a 20 yo male, A+Ox4, presenting to [facility] for Opiate/Benzo dependence. Pt has NKA, is Full code status, and on Regular diet. Pt is on Fall and Seizure precautions. Pt has HX of Anxiety, depression, Seizure, Left ACL SX, nose FX, and Right hand compound FX. Pt is on 5 day Ativan and Subutex tapers, tolerated well. Pt slept for a total of 8 HRS. Last COWS: 2 and Last CIWA: 1 @0400. No s/s of distress noted at this time. Respirations even and unlabored. Will endorse to day shift nurse.
--- NOTE | 2017-03-11 07:00 | NUR ---
Start of Shift Notes: Received patient in his room. Alert and oriented x 4. Verbally responsive. Able to make his needs known. Respirations even and unlabored. No SOB noted. Skin warm and dry to touch. Abdomen soft and non-distended with (+) BS in all 4 quadrants. No complains of N/V/D or abdominal discomfort noted. Voids independently. Ambulatory ad sherry with steady gait. Patient is a 21 year old male admitted for opiate and BZO dependence who was placed on a 5-day Ativan and 5-day Subutex taper as ordered. No adverse reactions noted. Has past medical hx of anxiety, depression, seizure due to withdrawal, left ACL, right hand fracture, and nose fracture. NKA. FULL CODE. Regular diet. On fall and seizure precautions. Educated patient on the current plan of care and the medication regimen. Encouraged oral fluid intake and encouraged group participation to learn new skills to prevent relapse. Will continue to monitor throughout the shift.
[2017-03-11 08:00] VITALS: BP 132/78
[2017-03-11] MEDS: MULTIVITAMINS,THERAPEUTIC TABLET PO SCH (09:25)
[2017-03-11] MEDS: BUPRENORPHINE HCL 2 MG TAB.SUBL SL SCH ×2 (09:25→20:58)
[2017-03-11] MEDS: DICYCLOMINE HCL 20 MG TABLET PO SCH ×3 (09:26→20:57)
[2017-03-11] MEDS: LORAZEPAM 1 MG TABLET PO SCH ×2 (09:26→20:57)
[2017-03-11] MEDS: LIDOCAINE 5% PATCH TD SCH (09:26)
[2017-03-11] MEDS: IBUPROFEN 600 MG TABLET PO PRN (09:26)
[2017-03-11] MEDS: GABAPENTIN 300 MG CAPSULE PO SCH ×4 (09:26→20:57)
[2017-03-11] MEDS: CLONIDINE HCL 0.1 MG TABLET PO PRN ×2 (09:26→17:07)
[2017-03-11] MEDS: BACLOFEN 20 MG TABLET PO SCH ×3 (09:26→20:57)
--- NOTE | 2017-03-11 09:27 | NUR ---
Clonidine 0.1mg PO given: Patient noted with complain of anxiety, chills, sweats and hot flashes. COWS 5/CIWA 2. Medicated patient with Clonidine 0.1mg PO as ordered. Will monitor for effectiveness.
--- NOTE | 2017-03-11 09:27 | NUR ---
Motrin 600 mg PO given: Patient noted with complain of 5/10 headache. Non-pharmacological interventions were provided but ineffective. Medicated patient with Motrin 600 mg PO as ordered. Will monitor for effectiveness.
--- NOTE | 2017-03-11 10:27 | NUR ---
Re-assessment: Per patient, PRN Clonidine and Motrin was effective in reducing anxiety, chills, hot flashes and headache. PL 10/22.
[2017-03-11 12:00] VITALS: BP 136/90
[2017-03-11 16:00] VITALS: BP 128/83
[2017-03-11] MEDS: METHOCARBAMOL 750 MG TABLET PO PRN (17:07)
[2017-03-11] MEDS: HYDROXYZINE PAMOATE 25 MG CAPSULE PO PRN (17:08)
--- NOTE | 2017-03-11 17:08 | NUR ---
Vistaril 25 mg PO/Clonidine 0.1mg PO and Robaxin 750 mg PO given: Patient complained of increased anxiety, chills, hot flashes, sweating and muscle aches and pains. Non-pharmacological interventions were provided with no help. Medicated patient with Vistaril 25 mg PO, Clonidine 0.1mg PO and Robaxin 750 mg Po as ordered. Will monitor for effectiveness.
--- NOTE | 2017-03-11 18:08 | NUR ---
Re-assessment: Per patient, PRN Clonidine, Vistaril and Robaxin were effective in reducing patient's anxiety, chills, sweats, hot flashes and muscle aches and pains.
--- NOTE | 2017-03-11 18:48 | NUR ---
End of Shift Notes: Patient is a 21 year old male admitted for opiate and BZO dependence who was placed on a 5-day Ativan and 5-day Subutex taper as ordered. No adverse reactions noted. Has past medical hx of anxiety, depression, seizure due to withdrawal, left ACL, right hand fracture, and nose fracture. NKA. FULL CODE. Regular diet. On fall and seizure precautions. Prior to admission, patient was using 10 mg of Xanax and 300 mg of Roxycodone x 5 months. VS monitored closely. No significant abnormalities noted. Withdrawal symptoms were closely monitored. Initial COWS 5/CIWA 2, patient presented with chills, hot flashes, headache, muscle aches and pains and anxiety. Medicated patient with Motrin 600 mg PO and Clonidine 0.1mg PO at 0927 with help after 1 hour. Last COWS 2/CIWA 2. Patient complained of hot flashes, sweats, and chills. PRN Robaxin, Vistaril and Clonidine was given at 1708 with help after 1 hour. Encouraged patient to increase oral intake and increase group participation. Compliant with care and treatment. All needs met and attended. Per patient, Ativan and Subutex has been helpnig him with his withdrawal symptoms. Intake 2800, void x 6, BM x 2.
[2017-03-11 20:00] VITALS: BP 133/78
--- NOTE | 2017-03-11 20:00 | NUR ---
Start of Shift Patient is a 21-year old, male, admitted for Opiate and Benzodiazepine dependence. With PMHx of Anxiety, Depression, Seizures due to withdrawal-last was in 07/2016, torn left ACL, right hand fracture, and nose fracture. Pt was placed on a 5-day Ativan and 5-day Subutex tapers and with no adverse reactions noted. Pt with NKA, is Full Code and on Regular diet. Pt is AAOx4 and with mild anxiety noted at this time. Pt is ambulatory with steady gait and with intact skin. Fall, universal, seizure and safety prec in place. Call light within reach. Pt verbalized understanding of teachings and instructions. Latest COWS=3, CIWA=3. Will continue to monitor.
[2017-03-11] MEDS: CLONIDINE HCL 0.1 MG TABLET PO SCH (20:57)
[2017-03-12] VITALS: BP 125/71
[2017-03-12 04:00] VITALS: BP 132/84
--- NOTE | 2017-03-12 07:07 | NUR ---
End of Shift Patient is a 21-year old, male, admitted for Opiate and Benzodiazepine dependence. With PMHx of Anxiety, Depression, Seizures due to withdrawal-last was in 07/2016, torn left ACL, right hand fracture, and nose fracture. Pt was placed on a 5-day Ativan and 5-day Subutex tapers and with no adverse reactions noted. Pt with NKA, is Full Code and on Regular diet. Pt is AAOx4 and with mild anxiety noted at this time. Pt is ambulatory with steady gait and with intact skin. Fall, universal, seizure and safety prec in place. Call light within reach. Pt verbalized understanding of teachings and instructions. Latest COWS=3, CIWA=3, slept for 8 hours. Endorsed to AM shift nurse for continuity of care.
--- NOTE | 2017-03-12 07:52 | NUR ---
START OF SHIFT NOTE: Received report from warehouse worker 2nd shift nurse. Pt is a 21 yo male admitted 03/05/17 for BZD and opioid dependence. Pt is on a 5 day Subutex and 5 day Ativan taper. Tolerating well. Color good, skin warm and dry. Respirations even and unlabored. Resting in bed at this time. Safety precautions observed. Call light within reach.
[2017-03-12 08:08] VITALS: BP 106/67
[2017-03-12] MEDS: GABAPENTIN 300 MG CAPSULE PO SCH ×4 (08:55→21:35)
[2017-03-12] MEDS: DICYCLOMINE HCL 20 MG TABLET PO SCH ×3 (08:56→21:35)
[2017-03-12] MEDS: MULTIVITAMINS,THERAPEUTIC TABLET PO SCH (08:56)
[2017-03-12] MEDS: BACLOFEN 20 MG TABLET PO SCH ×3 (08:56→21:35)
[2017-03-12] MEDS: CLONIDINE HCL 0.1 MG TABLET PO SCH ×2 (08:56→21:35)
[2017-03-12] MEDS: LIDOCAINE 5% PATCH TD SCH (08:57)
[2017-03-12] MEDS ORDERED: LORAZEPAM 1 MG TABLET PO SCH (09:00)
[2017-03-12] MEDS ORDERED: BUPRENORPHINE HCL 2 MG TAB.SUBL SL SCH (09:00)
[2017-03-12] MEDS ORDERED: QUET200T PO (12:38)
[2017-03-12] MEDS ORDERED: CLON0.1T14 PO (12:38)
[2017-03-12] MEDS ORDERED: HYDR-3895 PO (12:38)
[2017-03-12] MEDS ORDERED: DIPH50CA37 PO (12:38)
[2017-03-12] MEDS ORDERED: BACL20TA PO (12:38)
[2017-03-12] MEDS ORDERED: DICY20TA28 PO (12:38)
[2017-03-12] MEDS ORDERED: IBUP-1955 PO (12:38)
[2017-03-12] MEDS ORDERED: GABA-534 PO (12:38)
[2017-03-12 12:55] VITALS: BP 131/68
[2017-03-12] MEDS ORDERED: KETOROLAC TROMETHAMINE 30 MG INJ IM PRN (13:00)
--- NOTE | 2017-03-12 13:15 | NUR ---
Pt c/o left knee pain 05/22 Toradol 30mg IM administered prn
--- NOTE | 2017-03-12 14:15 | NUR ---
Pt states pain 4/10 after Toradol prn
[2017-03-12 17:05] VITALS: BP 125/84
[2017-03-12 17:37] LABS: *AMPHETAMINE, URINE NEGATIVE (NEGATIVE); *BARBITURATE, URINE NEGATIVE (NEGATIVE); *CANNABINOID, URINE POSITIVE (NEGATIVE); *COCCAINE, URINE NEGATIVE (NEGATIVE); *OPIATE, URINE NEGATIVE (NEGATIVE); *PHENCYCLIDINE SCREEN,URINE NEGATIVE (NEGATIVE)
[2017-03-12] MEDS: CLONIDINE HCL 0.1 MG TABLET PO PRN (18:15)
[2017-03-12] MEDS: HYDROXYZINE PAMOATE 25 MG CAPSULE PO PRN (18:16)
--- NOTE | 2017-03-12 18:16 | NUR ---
PRN VISTARIL AND CLONIDINE Pt c/o of hot and cold flashes and increased anxiety. PRN Vistaril and Clonidine administered, education provided, primary nurse to reassess.
--- NOTE | 2017-03-12 18:49 | NUR ---
END OF SHIFT NOTE: Report given to shift lab technician nurse. Pt is a 21 yo male admitted 03/05/17 for BZD and opioid dependence. Pt completed a 5 day Subutex and 5 day Ativan taper. To be discharged in AM. Color good, skin warm and dry. Respirations even and unlabored. Vital signs have remained stable throughout shift. Pt received Toradol 30mg IM prn @ 1310. Received Clonidine 0.1mg po prn and Vistaril 50mg po prn @ 1800. Last COWS 4 CIWA 5 @ 1700. Safety precautions observed. Call light within reach.
--- NOTE | 2017-03-12 19:15 | NUR ---
Start of Shift Note: Patient is a 21 y/o male admitted on 03/05/17 for Opiate and Benzo dependence. Patient with medical history of Anxiety, Depression, Seizure r/t withdrawal in 2016, Left ACL surgery(2012), right hand fracture(2010), Nose fracture(2010). Patient is on a regular diet with no known food and drug allergies. Full code status. Fall precaution noted. Patient with right hand scabs. Patient completed his Ativan and Subutex taper and he is scheduled to be discharge tomorrow. Urine drug screen collected and resulted. Last COWS 4 CIWA 5. Patient was given PRN Toradol, Clonidine, & Vistaril during day shift. Patient is alert & oriented x4. No shortness of breath noted. Respiration even & unlabored. Abdomen soft & non-distended. No nausea noted. Patient complains of stomach cramps, sweating & chills. Patient denies pain/discomfort at this time. No bilateral hand tremors noted. Patient denies hallucinations. Safety precautions are in place. Bed locked in lowest position. Both side rails up. Call light within pts reach. Will continue to monitor patient.
[2017-03-12 20:00] VITALS: BP 128/65
[2017-03-12] MEDS: QUETIAPINE FUMARATE 200 MG TABLET PO SCH (21:35)
--- NOTE | 2017-03-13 | NUR ---
Vitals/Cows/Ciwa deferred Patient asleep at this time and refused Vitals and to be assessed for Cows and Ciwa. Patient lying in bed with eyes closed. Patient appears calm and comfortable. No facial grimacing noted. Safety measures in place. Will continue to monitor patient.
[2017-03-13 04:00] VITALS: BP 125/72
--- NOTE | 2017-03-13 04:00 | NUR ---
Cows/Ciwa deferred Patient Vitals taken and is WNL. Patient asleep at this time and refused to be assessed for Cows and Ciwa. Patient lying in bed with eyes closed. Patient appears calm and comfortable. No facial grimacing noted. Safety measures in place. Will continue to monitor patient.
--- NOTE | 2017-03-13 07:12 | NUR ---
End of Shift Note: Patient had an uneventful night. Patient completed his Ativan & Subutex taper and he is scheduled to be discharge today. Pt is going to [facility] to continue treatment. Urine drug screen collected and resulted. Last COWS 3 CIWA 2 noted. No PRN medications given during my shift. Pt remained stable and vitals remains WNL. Pt is compliant with medications and treatment plan. Pt was able to sleep for a total of 6 hours. Pt consumed 2275ml of fluids. Voided 3x with no bowel movement. All needs attended & met. Safety measures in place. Will endorse pt to day shift nurse.
--- NOTE | 2017-03-13 07:13 | NUR ---
Start of shift note SBAR report rcv'd. Pt was admitted for opiate, benzo dependence and ETOH, cocaine, methamphetamine, ETOH and heroin abuse. Pt has a PMhx of anxiety, depression, and withdrawal induced seizure. Pt has completed a subutex and ativan taper without any ASE. Pt states that he feels ready for discharge today. Will continue to monitor pt. All needs addressed at this time.
[2017-03-13 08:00] VITALS: BP 112/64
[2017-03-13] MEDS: LIDOCAINE 5% PATCH TD SCH (09:00)
[2017-03-13] MEDS: GABAPENTIN 300 MG CAPSULE PO SCH (09:05)
[2017-03-13 09:06] VITALS: BP 112/64
[2017-03-13] MEDS: MULTIVITAMINS,THERAPEUTIC TABLET PO SCH (09:06)
[2017-03-13] MEDS: DICYCLOMINE HCL 20 MG TABLET PO SCH (09:06)
[2017-03-13] MEDS: CLONIDINE HCL 0.1 MG TABLET PO SCH (09:06)
[2017-03-13] MEDS: BACLOFEN 20 MG TABLET PO SCH (09:06)
--- NOTE | 2017-03-13 09:35 | NUR ---
Discharge note Pt was admitted for opiate and benzo dependence. Pt has a recent COWS of 3, CIWA of 2, VS are WNL, LBM 03/12/17. Pt states that he feels ready for discharge. Verbalized understanding of the discharge instructions. Pt denies any SI/HI. Pt prescriptions, discharge instructions, and all belongings returned to pt. Pt ID band removed, pt ambulated off of unit with PADDED PRODUCTS FINISHER, left facility via private transportation for [facility]..
== END 2017-03-13 09:35 | disposition other institution (70) | DRG 895 ==
LOC: SRC 20:02
PROVIDERS: ADMIT Internal Medicine; ATTEND Internal Medicine
DX: F11.23 Opioid dependence with withdrawal (principal); G89.29 Other chronic pain; E87.6 Hypokalemia; M50.90 Cervical disc disorder, unspecified, unspecified cervical region; F41.0 Panic disorder [episodic paroxysmal anxiety]; F12.90 Cannabis use, unspecified, uncomplicated; F13.230 Sedative, hypnotic or anxiolytic dependence with withdrawal, uncomplicated; F15.10 Other stimulant abuse, uncomplicated; F17.210 Nicotine dependence, cigarettes, uncomplicated; F32.9 Major depressive disorder, single episode, unspecified; R73.9 Hyperglycemia, unspecified
CPT/HCPCS: 36415; 70030-TC; 80307; 80345; 80349; 83735; 84100; 84443; 85025; 86580; 86592; 86705; 86803; 87340; 87806; 90732; G6040-TC; J1885

== ENCOUNTER 2018-07-21 18:30 | Inpatient (IN) | payer BC, OTHER ==
[~2018-07-21] VITALS: Ht 182.9 cm; Wt 104.3 kg
[~2018-07-21 18:30] MED LIST: BACL20TA PO; CLON0.1T14 PO; DICY20TA28 PO; DIPH50CA37 PO; GABA-534 PO; HYDR-3895 PO; IBUP-1955 PO; QUET200T PO
--- NOTE | 2018-07-21 21:00 | NUR ---
INTAKE ASSESSMENT BP: 167/90, HR: 95, RR:18, SpO2: 96%, T:98.1 Pt is in stable condition and able to be admitted on the unit. Unit protocols regarding medications and and vital signs every 4 hours were explained. Pt verbalized understanding. Will continue admission upon arrival on the unit.
[2018-07-21] MEDS ORDERED: BUSP10TA3 PO (21:35)
[2018-07-21] MEDS ORDERED: HYDROXYZINE PAMOATE 25 MG CAPSULE PO PRN (21:45)
[2018-07-21] MEDS ORDERED: LOPERAMIDE HCL 2 MG CAPSULE PO PRN ×2 (21:45)
[2018-07-21] MEDS ORDERED: IBUPROFEN 600 MG TABLET PO PRN (21:45)
[2018-07-21] MEDS ORDERED: ONDANSETRON ODT 4 MG TAB.RAPDIS SL PRN (21:45)
[2018-07-21] MEDS ORDERED: MAG HYDROX/AL HYDROX/SIMETH 30 ML LIQUID UDC PO PRN (21:45)
[2018-07-21] MEDS ORDERED: MAGNESIUM HYDROXIDE 30 ML LIQUID UDC PO PRN (21:45)
[2018-07-21] MEDS ORDERED: ACETAMINOPHEN 325 MG TABLET PO PRN (21:45)
[2018-07-21] MEDS ORDERED: LORAZEPAM 1 MG TABLET PO PRN (21:45)
[2018-07-21] MEDS ORDERED: BUPRENORPHINE HCL 2 MG TAB.SUBL SL PRN (21:45)
--- NOTE | 2018-07-21 21:45 | NUR ---
ADMISSION NOTE Pt arrived ambulatory accompanied by a PACKAGE MAKER at 5. Pt is a 22 year old male admitted on 07/21/18 for medically supervised withdrawal from Benzodiazepine (Xanax) and Opiates (Heroin and Oxycontin). Pt is full code with NKA. He reports a PMHx of anxiety (diagnosed at 15 years old), depression (diagnosed at 20 years old) and history of left knee reconstruction surgery in 2012. Pt noted to be alert and oriented x4. Pt observed with pin point pupils, anxiety, sweat visible on forehead, agitation, restlessness, appears older than stated age, unshaven, and with flat affect. Speech is clear and audible. Pt is cooperative and able to answer interview questions. He is currently experiencing benzodiazepine withdrawal symptoms and states Im feeling really anxious, sweaty, hot and cold and Im just not feeling myself. He denies withdrawal symptoms from opiates and states Im not feeling withdrawal from opiates, mostly just the benzos. I dont think Ill need anything for opiates til the morning. Initial COWS:6, CIWA:16 He has a PCP named Dr. King located in [facility]. He reports having a psychiatrist but is unable to recall name at this time. He brought home medications of Buspar 10 mg which he takes for anxiety. Pt states I havent really been taking this medication Medication has been reconciled. He reports a history of seizure related to Xanax withdrawal 2 years ago but unable to recall where he received medical care. He states I tried to quit cold turkey and then I had a seizure. I never want to go through that again. He also reports a history of overdose from Xanax in February 2018 and received medical care at [facility]. He denies a history of suicidal/homicidal ideations. He reports a history of 5150 in February 2018. He states after I overdosed, they thought I was trying to commit suicide and said I was a danger to myself so they 5150d me Pt reports he has been to detox at least three times in the last year. He has had several attempts at sobriety. He states Tonya tried to get sober like 2-3 times" He reports his most recent and longest sobriety is 4 months from December 2017-March 2018. He relapsed and has been using for the last 2.5 months. He reports he wants to get sober because, "I just have a lot of stuff going on. I have priorities and I need to get my head back in the game" He states his triggers for relapse and barrier to staying sober are "my anxiety and I just get bored. Sometimes my depression kicks in and Ill be playing video games on the couch for 18 hours. Then after three days I snap out of it" Pt reports he started using again because, I was staying at a sober living. I found out the fixed income portfolio manager broke [employer], it was a huge mess and he found a reason to kick me out. After I left, I wasnt happy being sober so I started to use again. I dont want to do sober living again, I dont like it Pt states my support system is my family and sober friends Pt reports after detox " I want to go to an inpatient. Im not down to go to sober living He reports using substances has affected his life because " I had legal consequences, and it affected my relationships with family and friends He is employed in construction, currently attends school in [place], and lives with his parents in [facility]. He describes his current use as: 1. Xanax PO 8-10 mg daily x2.5 months. Last dose: 2 mg on 07/20/18. He reports he has been using Xanax for a total of 1 year. 2. Oxycontin 200-400 mg daily x 2.5 months. Last dose: 45 mg on 07/21/18 at 0900. He reports I started using it when I was 15 but it didnt become a problem till I was 18 years old 3. Heroin 1 gram (IV/snort) daily x 2.5 months. Last dose: 0.5 gram (snort) on 07/20/18 4. Marijuana intermittently Pt describes his withdrawal symptoms as: anxiety, hot flashes, dry mouth, sweats and shivers Upon assessment, Heart rate regular. Denies chest pain or SOB. PERRLA, breathing is even and unlabored, lung sounds clear. Abdomen is soft and non-distended. Bowel sounds present in all quadrants, last BM 07/21/18. Pt reports that BM is regular. Pt's skin is warm, dry, and intact. Dr. Jones made aware of pt's admission. He is scheduled to start a 5 day Subutex and 5 day Phenobarbital taper tomorrow (07/22/18). Pt oriented to room and unit. Safety measures in place. Will continue to monitor. Addendum: 07/22/18 at 1340 by HAILEY QUIROZ RN Clarification of patient's history Patient has been using Xanax for a total of 5 years, not 1 year. Patient overdosed on Xanax in December 2017, not February 2018.
[2018-07-21 22:21] LABS: BASOPHILS % (AUTO) 0.5 % (0.0-2.0); EOSINOPHILS # (AUTO) 0.1 K/uL (0.0-0.7); EOSINOPHILS % (AUTO) 1.4 % (0.0-7.0); HEMATOCRIT 41.8 % (36.7-47.1); HEMOGLOBIN 14.6 g/dL (12.5-16.3); LYMPHOCYTES # (AUTO) 2.1 K/uL (20.0-40.0); MEAN CORPUSCULAR HEMOGLOBIN 30.9 uug (23.8-33.4); MEAN CORPUSCULAR HGB CONC 35 g/dL (32.5-36.3); MEAN CORPUSCULAR VOLUME 88.5 fL (73.0-96.2); MONOCYTES # (AUTO) 0.4 K/uL (2.0-10.0); MONOCYTES % (AUTO) 6.7 % (0.0-11.0); NEUTROPHILS % (AUTO) 53.4 % (38.5-71.5); PLATELET COUNT (AUTO) 288 K/uL (152-348); RED BLOOD CELL COUNT(AUTO) 4.72 MIL/uL (4.06-5.63); WHITE BLOOD COUNT (AUTO) 5.6 K/uL (3.6-10.2)
[2018-07-21 22:43] LABS: ETHANOL < 3 MG/DL (0-0)
[2018-07-21] MEDS ORDERED: PHENOBARBITAL 60 MG TABLET PO ONE (22:45)
--- NOTE | 2018-07-21 22:46 | NUR ---
ONE TIME PHENOBARBITAL One time phenobarbital 60 mg administered as ordered. CIWA:16. Breathing even and unlabored, safety measures in place. Will monitor effectiveness.
[2018-07-21 22:49] LABS: ALANINE AMINOTRANSFERASE 134 U/L (16-63); ALKALINE PHOSPHATASE 72 U/L (50-136); ASPARTATE AMINOTRANSFERASE 60 U/L (15-37); BILIRUBIN,TOTAL 0.6 mg/dL (0.2-1.0); CARBON DIOXIDE 30 mmol/L (21-32); CHLORIDE 100 mmol/L (98-107); CREATININE 1.2 mg/dL (0.6-1.3); GLUCOSE 89 mg/dL (74-106); MAGNESIUM 1.8 mg/dL (1.8-2.4); POTASSIUM 3.5 mmol/L (3.5-5.1); TOTAL PROTEIN, SERUM 7.8 g/dL (6.4-8.2); UREA NITROGEN, BLOOD 15 mg/dL (7-18)
[2018-07-21 22:59] LABS: THYROID STIMULATING HORMONE 1.916 mIU/mL (0.358-3.740)
[2018-07-21 23:14] LABS: *AMPHETAMINE, URINE NEGATIVE (NEGATIVE); *BARBITURATE, URINE NEGATIVE (NEGATIVE); *CANNABINOID, URINE POSITIVE (NEGATIVE); *COCCAINE, URINE NEGATIVE (NEGATIVE); *OPIATE, URINE POSITIVE (NEGATIVE); *PHENCYCLIDINE SCREEN,URINE NEGATIVE (NEGATIVE)
--- NOTE | 2018-07-21 23:46 | NUR ---
ONE TIME PHENOBARBITAL REASSESSMENT One time medication effective. Pt reports decrease in withdrawal symptoms. CIWA:11. Will continue to monitor.
[2018-07-22] VITALS: BP 130/70
--- NOTE | 2018-07-22 | NUR ---
CIWA/COWS Pt reports mild anxiety, chills, sweats, and restlessness. CIWA:11, COWS:6. Will continue to monitor.
--- NOTE | 2018-07-22 04:00 | NUR ---
VITALS REFUSED, COWS/CIWA DEFERRED 0400 vitals refused. COWS and CIWA deferred d/t pt lying in bed with eyes closed noted to be asleep. Breathing is even and unlabored, safety measures in place. Will continue to monitor.
--- NOTE | 2018-07-22 07:25 | NUR ---
END OF SHIFT Pt is a 22 year old male admitted for Benzodiazepine and Opiate withdrawal. Pt remains alert and oriented x4. He is scheduled to start a 5 day Phenobarbital and 5 day Subutex taper today. At 2246 he received a one- time dose of Phenobarbital 60 mg. He slept a total of 6 hrs, Intake: 1010mL, Void: x1, BM:0, COWS: 6, CIWA:11 at 0000. Breathing is even and unlabored, safety measures in place. Will endorse to AM shift.
--- NOTE | 2018-07-22 07:28 | NUR ---
Start Of Shift Report received from material handler 2nd shift nurse Pt is a 22 year old male admitted for Benzodiazepine and Opiate withdrawal. Per material handler 2nd shift nurse pt's last CIWA was 11 and COWS was a 6. Pt continues his 5 day Phenobarbital and 5 Day Subutex tapers. Upon start of shift pt noted laying in his bed with his eyes closed resting, breathing even and unlabored. When greeted pt stated Im feeling terrible Im very shaky and feel sick, are the Meds going to be passed out soon? Pt's room appears unorganized and messy, pt has water, soda bottles and candy wraps laying around the room, there is candy on the floor. Pt appears anxious, sweaty and flushed. During assessment, pt is AOx4. Lung sounds clear bilaterally. Radial pulse is regular and non-bounding. Abdomen soft and non-tender. Pt's skin is warm and intact. pt denies any pain at the moment. Encouraged pt to drink plenty of fluids to keep hydrated compensate for fluids lost by sweat and help speed up the detox process. Pt did not received any PRN medications last night, pt did receive a onetime dose of Phenobarbital 60mg, Pt slept a total of 6 hours last night. Bed in lowest position. Side rails up x2. Call light functioning and within reach. All needs attended and met. Will continue to monitor.
[2018-07-22 08:00] VITALS: BP 127/75
--- NOTE | 2018-07-22 08:00 | NUR ---
CIWA 12/COWS 9 Pt has fine tremors, diaphoresis, anxiety and restlessness. Pt complains of chills and body aches. pt has generalized pain. Pt encouraged to drink more fluids to help with detox process. Will continue to monitor, support and encourage according to plan of care.
[2018-07-22] MEDS ORDERED: PHENOBARBITAL 60 MG TABLET PO SCH (09:00)
[2018-07-22] MEDS ORDERED: TUBERCULIN,PURIF.PROT.DERIV. 5 TU/0.1 ML TEST ID ONE (09:00)
[2018-07-22] MEDS ORDERED: 5 DAY TAPER BUPRENORPHINE -SERENITY PROTOCOL SL PRN (09:00)
[2018-07-22] MEDS ORDERED: 6 DAY PHENOBARBITAL TAPER -SERENITY PROTOCOL PO PRN (09:00)
[2018-07-22] MEDS: MULTIVITAMINS,THERAPEUTIC TABLET PO SCH (09:29)
[2018-07-22] MEDS: BUPRENORPHINE HCL 2 MG TAB.SUBL SL SCH ×4 (09:30→21:35)
[2018-07-22 12:00] VITALS: BP 112/69
--- NOTE | 2018-07-22 12:00 | NUR ---
COWS 11 CIWA 12 Pt has diaphoresis, anxiety restless legs, yawning agitation, Emotional volatility and restlessness. Pt complains of chills runny nose and fatigue. Pt encouraged to drink more fluids to help with detox process. Will continue to monitor, support and encourage according to plan of care.
[2018-07-22] MEDS ORDERED: 4 DAY TAPER VALIUM-SERENITY PROTOCOL PO PRN (13:30)
--- NOTE | 2018-07-22 14:04 | NUR ---
Therapist prompted client to attend all group therapy sessions. Client stated he might attend this afternoon's group therapy sessions if he is feeling well enough physically.
--- NOTE | 2018-07-22 15:15 | NUR ---
Therapist prompted client to attend group therapy.
[2018-07-22] MEDS: DIAZEPAM 10 MG TABLET PO SCH ×2 (15:57→21:35)
[2018-07-22 16:00] VITALS: BP 117/76
--- NOTE | 2018-07-22 19:19 | NUR ---
End of Shift Report given to hourly shift manager nurse, Plan of care followed, Vital signs monitored closely Q4H. Withdrawals symptoms were closely monitored, medications given as schedule. Initial CIWA 9 COWS 12. Pt encouraged adequate PO fluid intake as tolerated to compensate for all the water lost in sweat as well as with helping speed up the detox process. Pt presented with diaphoresis, anxiety restless legs, yawning agitation, emotional volatility and restlessness during the day. Pt received all of the scheduled medications. Pt did not receive any PRN medications during the day. Last CIWA was a 11 COWS 10. Pt reported that Subutex and Valium have been working well at controlling the withdrawal symptoms. Pt ate all of the meals. Pt attended all the groups and activities to learn new coping skills to prevent relapse. Pt denies any SI/HI. All safety measures in place, bed in lowest locked position, call light within reach. All needs met and attended.
--- NOTE | 2018-07-22 19:30 | NUR ---
Start of shift Patient is a 22 year old male admitted on 07/21/2018 here at [facility] for medically supervised Opiate and Benzo's withdrawal. Patient is on a 5 day Subutex taper and 4 day Valium taper. Patients last COWS is 10 and CIWA is 11. Per endorsement patient did not have any PRN medications during day shift. Upon rounds 2100 medications were explained and patient verbalized understanding. Patient was noted depressed, withdrawn, anxious and agitated. Respirations are even and unlabored. Safety measures in place, bed locked in low position, side rails up x2, and call light within reach. Will continue to monitor.
[2018-07-22 20:00] VITALS: BP 115/68
--- NOTE | 2018-07-22 20:00 | NUR ---
COWS and CIWA Assessment Patient is presenting with s/s of withdrawal as follow: tremors, good bumps, anxiety, body aches, itching on neck and back, and agitation. Patients COWS is 10 and CIWA is 13. Respirations are even and unlabored. Safety measures in place. Will continue to monitor.
[2018-07-23] VITALS: BP 101/72
[2018-07-23 04:00] VITALS: BP 108/76
[2018-07-23 04:09] LABS: HEPATITIS B SURFACE AG Negative (Negative)
--- NOTE | 2018-07-23 07:25 | NUR ---
Start of Shift Pt. is a 22 y/o male admitted for the medically managed withdrawal from benzodiazepines and Opiates. Pt. was placed on a 5 day Subutex and 4 day Valium taper to manage withdrawal symptoms. Endorse from previous shift pt. presented with anxiety, restlessness, tremors, diaphoresis and tremors. Received pt. in room. Pt. awake laying in bed watching television. Pt. presents with a disheveled appearance, cluttered personal space, and malodorous. Encourage pt. to maintain a hygienic person and personal space. Educated pt. on plan of care for the day. Safety measures in place. Will continue to monitor pt.s behavior for safety.
--- NOTE | 2018-07-23 07:28 | NUR ---
End of shift Patient is a 22 year old male admitted on 07/21/2018, here at [facility] for medically supervised Opiate and Benzo's withdrawal. Patient is on a 5 day Subutex taper and 4 day Valium taper. Patients last COWS is 10 and CIWA is 13. Patient did not have any PRN medications during this shift. Patient slept for 8 hours and had a total intake of 1728 ml. Patient voided x3 and had no bowel movements. Respirations are even and unlabored. Safety measures in place, bed locked in low position, side rails up x2, and call light within reach. Will endorse to day shift.
[2018-07-23 08:00] VITALS: BP 117/50
--- NOTE | 2018-07-23 08:00 | NUR ---
COWS/CIWA Assessment COWS of 12 and CIWA of 13. Pt. in room and presents with diaphoresis, anxiety, tremors, restlessness and agitation. Will give medication as ordered. Will continue to monitor pt.'s behavior for safety.
[2018-07-23] MEDS: MULTIVITAMINS,THERAPEUTIC TABLET PO SCH (08:49)
[2018-07-23] MEDS: DIAZEPAM 5 MG TABLET PO SCH ×4 (08:49→21:23)
[2018-07-23] MEDS: BUPRENORPHINE HCL 2 MG TAB.SUBL SL SCH ×3 (08:49→21:23)
[2018-07-23] MEDS ORDERED: PHENOBARBITAL 60 MG TABLET PO SCH (09:00)
[2018-07-23] MEDS: CLONIDINE HCL 0.1 MG TABLET PO PRN (10:52)
[2018-07-23] MEDS: METHOCARBAMOL 750 MG TABLET PO PRN ×2 (10:52→21:23)
--- NOTE | 2018-07-23 10:52 | NUR ---
PRN Medication Pt. in room complaining of body aches and increased anxiety. PRN Clonidine, Robaxin, and Motrin given at this time to manage withdrawal symptoms. Will continue to monitor pt.'s behavior for safety and medication effectiveness.
--- NOTE | 2018-07-23 11:30 | NUR ---
PRN Re-Assessment Pt. reports a decrease in anxiety and body aches. Medication effective. Will continue to monitor pt.'s behavior for safety.
[2018-07-23 12:00] VITALS: BP 123/78
--- NOTE | 2018-07-23 12:00 | NUR ---
COWS/CIWA Assessment COWS of 13 and CIWA of 13. Pt. in room and presents with diaphoresis, anxiety, tremors, restlessness and agitation. Pt. compliant with medication regiment. Will continue to monitor pt.'s behavior for safety.
--- NOTE | 2018-07-23 14:00 | NUR ---
PRN Medication Pt. in room complaining of nausea. Pt. states that he had one episode of emesis which he did not report to anyone until this time. PRN Zofran given at this time to manage withdrawal symptoms. Will continue to monitor pt.'s behavior for safety and medication effectiveness.
--- NOTE | 2018-07-23 14:45 | NUR ---
PRN Re-Assessment Pt. reports a decrease in nausea. Medication effective. Will continue to monitor pt.'s behavior for safety.
[2018-07-23 16:00] VITALS: BP 109/54
--- NOTE | 2018-07-23 16:00 | NUR ---
COWS/CIWA Assessment COWS of 10 and CIWA of 13. Pt. in room and presents with diaphoresis, anxiety, tremors, restlessness, nausea and agitation. Pt. complaint with medication regiment and treatment plan. Will continue to monitor pt.'s behavior for safety.
[2018-07-23] MEDS: ONDANSETRON 4 MG/2 ML VIAL IM PRN (16:27)
--- NOTE | 2018-07-23 16:27 | NUR ---
PRN Medication Pt. in room complaining of nausea with no episode of emesis since the prior administration of Zofran. PRN Zofran IM given at this time to manage withdrawal symptoms. Will continue to monitor pt.'s behavior for safety and medication effectiveness.
--- NOTE | 2018-07-23 17:00 | NUR ---
PRN Re-Assessment Pt. denies any feelings of nausea. Medication effective. Will continue to monitor pt.'s behavior for safety.
--- NOTE | 2018-07-23 19:27 | NUR ---
End of Shift Pt. is a 22 y/o male admitted for the medically managed withdrawal from benzodiazepines and Opiates. Pt. was placed on a 5 day Subutex and 4 day Valium taper to manage withdrawal symptoms. Throughout shift pt. presented with anxiety, restlessness, nausea, tremors, diaphoresis and tremors. Pt. complaint with medication regiment and is able to verbalize his needs. Safety measures in place. Will endorse pt.s care to oncoming shift.
--- NOTE | 2018-07-23 19:30 | NUR ---
Start of shift Patient is a 22 year old male admitted on 07/21/2018 here at [facility] for medically supervised Opiate and Benzo's withdrawal. Patient is on a 5 day Subutex taper and 4 day Valium taper. Patients last COWS is 10 and CIWA is 13. Per endorsement patient had PRN Clonidine, Robaxin, Zofran, and Motrin during day shift. Upon rounds 2100 medications were explained and patient verbalized understanding. Patient was noted anxious, agitated. Respirations are even and unlabored. Safety measures in place, bed locked in low position, side rails up x2, and call light within reach. Will continue to monitor.
[2018-07-23 20:00] VITALS: BP 122/53
--- NOTE | 2018-07-23 20:00 | NUR ---
CIWA and COWS Assessment Patient is presenting with s/s and of withdrawal as follow: tremors, stuffy nose, anxiety, body aches, body aches, and agitation. Patients COWS is 9 and CIWA is 11. Respirations are even and unlabored. Safety measures in place. Will continue to monitor.
--- NOTE | 2018-07-23 21:23 | NUR ---
PRN Robaxin Patient was presenting with body aches and lower back pain. Administered PRN Robaxin and patient tolerated well. Respirations are even and unlabored. Safety measures in place. Will continue to monitor.
--- NOTE | 2018-07-23 22:23 | NUR ---
MINAL Kumari Reassessment Patient was noted in bed watching tv and he reported no body aches and lower back pain. Will continue to monitor patient for complications. Safety measures in place. Respirations are even and unlabored.
[2018-07-24] VITALS: BP 118/65
--- NOTE | 2018-07-24 | NUR ---
0000 COWS and CIWA Deferred Patient noted in bed lying with eyes closed, breathing even and unlabored. Per protocol COWS and CIWA is to be assess while patient is awake. Safety measures in place. Will continue to monitor.
[2018-07-24 04:00] VITALS: BP 112/69
--- NOTE | 2018-07-24 07:27 | NUR ---
End of shift Patient is a 22 year old male admitted on 07/21/2018 here at [facility] for medically supervised Opiate and Benzo's withdrawal. Patient is on a 5 day Subutex taper and 4 day Valium taper. Patients last COWS is 9 and CIWA is 11. Patient had PRN Robaxin during this shift. Patient slept for 7 hours and have a total intake of 946 ml. Patient voided x2 and hand no bowel movements. Patient had liver function test schedule for this morning but lab was unable to obtain blood at this moment. Respirations are even and unlabored. Safety measures in place, bed locked in low position, side rails up x2, and call light within reach. Will endorse to day shift.
--- NOTE | 2018-07-24 07:55 | NUR ---
Start Of Shift: Patient is a 22yr old male who was admitted to [facility] on 07/21/18 for a medically supervised withdrawal from Benzodiazepines ( Xanax) and Opiates ( Heroin IV/Insufflation and Oxycodone) and also states he was abusing Marijuana. he has been placed on a 5 day Subutex taper and 4 day Valium taper and this is day 2. PRN Robaxin was given on PM shift for back pain, he slept for 7 hrs and last COWS was 9 and CIWA 11. He is awake in bed at this time and voiced pain of 6/10 in lower back, scheduled meds and PRN's to be given at 0800. Continue to follow MD plan of care and offer support and encouragement.
[2018-07-24 08:00] VITALS: BP 118/48
--- NOTE | 2018-07-24 08:00 | NUR ---
COWS 11/CIWA 11 Patient's withdrawal symptoms present as itchy red watery eyes, generalized body aches, lower back pain, restlessness, increased anxiety and decreased appetite. Scheduled Subutex and Valium given along with PRN Robaxin
[2018-07-24] MEDS: DIAZEPAM 5 MG TABLET PO SCH ×3 (08:04→20:15)
[2018-07-24] MEDS: MULTIVITAMINS,THERAPEUTIC TABLET PO SCH (08:04)
[2018-07-24] MEDS: METHOCARBAMOL 750 MG TABLET PO PRN ×2 (08:04→20:15)
--- NOTE | 2018-07-24 08:05 | NUR ---
PRN Robaxin 750mg PO given for muscle aches/back ache 03/22 will reassess
[2018-07-24] MEDS ORDERED: BUPRENORPHINE HCL 2 MG TAB.SUBL SL SCH (09:00)
[2018-07-24] MEDS ORDERED: PHENOBARBITAL 60 MG TABLET PO SCH (09:00)
--- NOTE | 2018-07-24 09:05 | NUR ---
PRN Reassess Patient states Robaxin was mildly effective, back pain now 12/20 will continue to monitor
--- NOTE | 2018-07-24 10:47 | NUR ---
Therapist prompted client to attend group.
[2018-07-24 11:06] LABS: BILIRUBIN,DIRECT 0.1 mg/dL (0.0-0.2); BILIRUBIN,TOTAL 0.4 mg/dL (0.2-1.0); TOTAL PROTEIN, SERUM 7.1 g/dL (6.4-8.2)
[2018-07-24] MEDS ORDERED: INFLUENZA VACCINE 2018-2019 0.5 ML DISP.SYRIN IM ONE (11:45)
[2018-07-24] MEDS: ONDANSETRON 4 MG/2 ML VIAL IM PRN (11:57)
[2018-07-24 12:00] VITALS: BP 112/52
--- NOTE | 2018-07-24 12:00 | NUR ---
PRN Zofran Zofran 4mg IM given for reports of constant nausea for past 30mis ( he had to leave group) Will reassess
--- NOTE | 2018-07-24 12:00 | NUR ---
COWS /CIWA 16 Patient's withdrawal symptoms present as constant nausea, stomach pain, itchy red watery eyes, generalized body aches, lower back pain, restlessness, increased anxiety and decreased appetite. Zofran 4mg IM given at 1200
--- NOTE | 2018-07-24 12:30 | NUR ---
FLU Vaccine given R Deltoid lot # [id number] Exp 04/11/2019
[2018-07-24] MEDS ORDERED: POLYVINYL ALCOHOL OPHT DROPS 15 ML BOTTLE EACHEYE PRN (13:00)
--- NOTE | 2018-07-24 13:00 | NUR ---
PRN Reassess patient states Zofran 4mg IM effective, nausea has ceased
--- NOTE | 2018-07-24 14:00 | NUR ---
PRN Toradol 30mg IM given for 8/10 generalized body aches Visine/ 1 drop each eye for dry eye/irritation
[2018-07-24] MEDS: BUPRENORPHINE HCL 2 MG TAB.SUBL SL SCH ×2 (14:01→20:16)
[2018-07-24] MEDS: KETOROLAC TROMETHAMINE 30 MG INJ IM PRN (14:02)
--- NOTE | 2018-07-24 15:00 | NUR ---
PRN Reassess Patient states Toradol 30mg IM was effective for body aches, pain level now 2/10 Visine dry eye drops effective for dry itchy eyes
--- NOTE | 2018-07-24 16:00 | NUR ---
COWS /CIWA 14 Patient's withdrawal symptoms present as intermittent nausea, stomach pain, itchy red watery eyes, generalized body aches, lower back pain, restlessness, increased anxiety and decreased appetite. Toradol 30mg Im given at 1400 with positive results Visine dry eye relief drops effective
[2018-07-24 16:51] VITALS: BP 113/40
--- NOTE | 2018-07-24 18:43 | NUR ---
End Of Shift Patient is a 22yr old male who [facility] for a medically supervised withdrawal from Benzodiazepines (Xanax) and Opiates ( Heroin IV/Insufflations and Oxycodone) and also states he was abusing Marijuana. he has been placed on a 5 day Subutex taper and 4 day Valium taper and this is day 2. PRN medications given this shift: Robaxin, Zofran IM, Toradol and Visine dry eye drops, Flu vaccine was also administrated today. His withdrawal symptoms presents as generalized body aches, lower back pain, nausea, itchy red watery eyes, restlessness and lethargy. He has attended 1 of 2 groups today and is interacting appropriately with his peers. His last COWS was 10 and CIWA 14 @ 1600. He had a fluid intake of 2300 ML, 4 Voids and 1 BM. Continue to follow MD plan of care and offer support and encouragement. Endorsed to air chipper.
--- NOTE | 2018-07-24 19:50 | NUR ---
START OF SHIFT NOTE Rcvd report from outgoing nurse. Pt is a 22 y/o male A/O to person, place, time, and purpose. Pt was admitted for medically supervised withdrawal from Benzodiazepines and Opiates. Pt is on day 3 of a 5 day Subutex and 4 day Valium taper. Pt has been presenting w/ anxiety, depressed and withdrawn mood, flat affect, lethargy, body aches, chills, and sweats. PRN Robaxin, Zofran, Toradol, and Visine eye drops were given and noted effective by outgoing nurse. Last CIWA 14 and COWS 10 @ 1600. Call light is within reach. Pt will continue to be monitored and needs met.
[2018-07-24 20:01] VITALS: BP 108/44
--- NOTE | 2018-07-24 20:10 | NUR ---
CIWA AND COWS ASSESSMENT CIWA 15 and COWS 12. Pt has been presenting w/ anxiety, depressed and withdrawn mood, flat affect, lethargy, body aches, chills, and sweats. V/S: T:97.8, P:68, RR:18, SPO2:97, BP:108/44.
--- NOTE | 2018-07-24 20:15 | NUR ---
PRN ROBAXIN ADMINISTRATION Robaxin 750mg given for body aches/pain. Pt states 5/10 pain. Will reassess pt in 1 hr.
--- NOTE | 2018-07-24 21:15 | NUR ---
MINAL STEEN REASSESSMENT Pt is in bed and states relief from pain down to 0/10. Pt states they were about to fall asleep. Will continue to monitor pt.
[2018-07-24] MEDS: diphenhydrAMINE 50 MG CAPSULE PO PRN (23:50)
[2018-07-24] MEDS: CLONIDINE HCL 0.1 MG TABLET PO PRN (23:50)
--- NOTE | 2018-07-24 23:50 | NUR ---
PRN BENADRYL AND CLONIDINE ADMINISTRATION Benadryl 50mg and Clonidine 0.1mg given for sleep and anxiety. Will reassess pt in 1 hr.
--- NOTE | 2018-07-25 00:06 | NUR ---
CIWA AND COWS ASSESSMENT CIWA 14 and COWS 10. . Pt has been presenting w/ anxiety, depressed and withdrawn mood, flat affect, lethargy, body aches, chills, and sweats. Pt refused V/S.
--- NOTE | 2018-07-25 00:50 | NUR ---
PRN BENADRYL AND CLONIDINE REASSESSMENT Pt is in bed w/ his eyes closed. Pt's respirations are unlabored and even.
--- NOTE | 2018-07-25 04:22 | NUR ---
CIWA AND COWS DEFERRED. V/S REFUSED Pt is in bed w/ his eyes closed. Pt's respirations are unlabored and even.
--- NOTE | 2018-07-25 07:15 | NUR ---
Start of Shift Pt. is a 22 y/o male admitted for the medically managed withdrawal from benzodiazepines and Opiates. Pt. was placed on a 5 day Subutex taper and 4 day Valium taper to manage withdrawal symptoms. Endorse from previous shift pt. presented with diaphoresis, lethargy, body aches, anxiety, and flat affect. Pt. was given PRN Robaxin, Benadryl, and Clonidine to manage withdrawal symptoms. Received pt. in room. Pt. in bed with eyes closed. Pt. 's room is malodorous, with linen cluttered about his bed and falling of the sides. No signs of SOB noted. Safety measures in place. Will continue to monitor pt.'s behavior for safety.
--- NOTE | 2018-07-25 07:23 | NUR ---
END OF SHIFT NOTE Endorsed pt to oncoming nurse. Pt is a 22 y/o male A/O to person, place, time, and purpose. Pt was admitted for medically supervised withdrawal from Benzodiazepines and Opiates. Pt completed day 3 of a 5 day Subutex and 4 day Valium taper. Pt continues presenting w/ anxiety, depressed and withdrawn mood, flat affect, lethargy, body aches, chills, and sweats. Pt denies any S/I or H/I. PRN Robaxin 750mg for body aches, Benadryl 50mg for sleep, and Clonidine 0.1mg for anxiety were given and noted effective. Pts fluid intake was 3210ml and he slept for 6hrs. Last CIWA 14 and COWS 10 @ 0000. Call light is within reach.
[2018-07-25 08:00] VITALS: BP 90/45
--- NOTE | 2018-07-25 08:00 | NUR ---
COWS/CIWA Assessment COWS of 10 and CIWA of 11. Pt. in room laying in bed and presents with anxiety, restlessness, chills, a flat affect, and agitation. Will give medications as ordered. Will continue to monitor pt.'s behavior for safety.
[2018-07-25] MEDS: BUPRENORPHINE HCL 2 MG TAB.SUBL SL SCH ×3 (08:29→20:36)
[2018-07-25] MEDS: DIAZEPAM 5 MG TABLET PO SCH ×2 (08:29→20:36)
[2018-07-25] MEDS: MULTIVITAMINS,THERAPEUTIC TABLET PO SCH (08:29)
[2018-07-25] MEDS ORDERED: PHENOBARBITAL 60 MG TABLET PO SCH (09:00)
[2018-07-25 12:00] VITALS: BP 113/54
--- NOTE | 2018-07-25 12:00 | NUR ---
COWS/CIWA Assessment COWS of 10 and CIWA of 11. Pt. in room laying in bed and presents with anxiety, restlessness, chills, a flat affect, and agitation. Pt. compliant with medication regiment. Will continue to monitor pt.'s behavior for safety.
[2018-07-25 16:00] VITALS: BP 114/51
--- NOTE | 2018-07-25 16:00 | NUR ---
COWS/CIWA Assessment COWS of 10 and CIWA of 11. Pt. in room laying in bed and presents with anxiety, restlessness, chills, a flat affect, and agitation. Pt. compliant with treatment plan and medication regiment. Will continue to monitor pt.'s behavior for safety.
--- NOTE | 2018-07-25 19:08 | NUR ---
End of Shift Pt. is a 22 y/o male admitted for the medically managed withdrawal from benzodiazepines and Opiates. Pt. was placed on a 5 day Subutex taper and 4 day Valium taper to manage withdrawal symptoms. Throughout shift pt. presented with diaphoresis, lethargy, body aches, anxiety, and flat affect. No PRN's given during shift. Pt. compliant with treatment plan and medication regiment. Safety measures in place. Will endorse pt.'s care to oncoming shift.
--- NOTE | 2018-07-25 19:30 | NUR ---
Start of shift Patient is a 22 year old male admitted on 07/21/2018 here at [facility] for medically supervised Opiate and Benzo's withdrawal. Patient is on a 5 day Subutex taper and 4 day Valium taper. Patients last COWS is 10 and CIWA is 11. Per endorsement patient did not have any PRN medications during day shift. Upon rounds 2100 medications were explained and patient verbalized understanding. Patient was noted depressed, worried, disheveled, anxious, and agitated. Respirations are even and unlabored. Safety measures in place, bed locked in low position, side rails up x2, and call light within reach. Will continue to monitor.
[2018-07-25 20:00] VITALS: BP 151/70
--- NOTE | 2018-07-25 20:00 | NUR ---
CIWA and COWS Assessment Patient is presenting with s/s and of withdrawal as follow: mild sweats, tremors, anxiety, body aches, and agitation. Patients COWS is 10 and CIWA is 10. Respirations are even and unlabored. Safety measures in place. Will continue to monitor.
[2018-07-25] MEDS: METHOCARBAMOL 750 MG TABLET PO PRN (20:36)
--- NOTE | 2018-07-25 20:36 | NUR ---
PRN Robaxin Patient was presenting with body aches and lower back pain. Pain level is 8/10. Administered PRN Robaxin and patient tolerated well. Respirations are even and unlabored. Safety measures in place, bed locked in low position, side rails up x2, and call light within reach. Will continue to monitor.
--- NOTE | 2018-07-25 21:36 | NUR ---
MINAL Kumari Reassessment Patient was noted in bed watching tv and he reported lower back pain decreased a little. Pain level is 6/10. Will continue to monitor patient for complications. Safety measures in place. Respirations are even and unlabored.
[2018-07-25] MEDS: KETOROLAC TROMETHAMINE 30 MG INJ IM PRN (22:57)
--- NOTE | 2018-07-25 22:57 | NUR ---
PRN Toradol 30 mg Patient is complaining of lower back pain, patient stated: Robaxin only helped for a little while, and pain has returned. Patient stated he has a pain level of 8/10. Administered PRN Toradol 30 mg IM in the right deltoid. Patient tolerated well. Safety measures in place and will continue to monitor.
--- NOTE | 2018-07-25 23:57 | NUR ---
PRN Toradol 30 mg Reassessment Patient noted in bed watching tv, he stated that pain had decreased and pain level was 3/10. Patient said he was getting ready for bed. Respirations are even and unlabored. Safety measures in place and will continue to monitor.
[2018-07-26] VITALS: BP 121/63
--- NOTE | 2018-07-26 | NUR ---
CIWA and COWS Assessment Patient is presenting with s/s and of withdrawal as follow: tremors, mild sweats, stuffy nose, anxiety, body aches, and agitation. Patients COWS is 9 and CIWA is 9. Respirations are even and unlabored. Safety measures in place. Will continue to monitor.
[2018-07-26] MEDS: diphenhydrAMINE 50 MG CAPSULE PO PRN ×2 (00:46→20:40)
[2018-07-26] MEDS: CLONIDINE HCL 0.1 MG TABLET PO PRN ×2 (00:47→20:40)
--- NOTE | 2018-07-26 00:47 | NUR ---
PRN Benadryl and Clonidine Patient was presenting with difficulty falling asleep and increase anxiety. Administered PRN Benadryl and Clonidine and patient tolerated well and will continue to monitor. Safety measures in place.
--- NOTE | 2018-07-26 01:47 | NUR ---
PRN Benadryl and Clonidine Reassessment Patient noted in bed lying with eyes closed, breathing even and unlabored. Medication noted to be effective and no s/s of adverse effects were noted. Safety measures in place and will continue to monitor.
[2018-07-26 04:00] VITALS: BP 118/68
--- NOTE | 2018-07-26 07:07 | NUR ---
End of shift Patient is a 22 year old male admitted on 07/21/[address] [facility] for medically supervised Opiate and Benzo's withdrawal. Patient is on a 5 day Subutex taper and 4 day Valium taper. Patients last COWS is 9 and CIWA is 9. Patient had PRN Toradol, Robaxin, Clonidine and Benadryl during this shift. Patient slept for 5 hours and had a total intake of 855ml. Patient voided x2 and had no bowel movements during this shift. Respirations are even and unlabored. Safety measures in place, bed locked in low position, side rails up x2, and call light within reach. Will endorse to day shift.
--- NOTE | 2018-07-26 07:30 | NUR ---
Start Of Shift Patient is a 22yr old male who was admitted to [facility] on 07/21/18 for a medically supervised withdrawal from Benzodiazepines (Xanax) and Opiates ( Heroin IV/Insufflation and Oxycodone) and also states he was abusing Marijuana. he continues on a 5 day Subutex taper and 4 day Valium taper. PRN Robaxin, Toradol, Clonidine and Benadryl were given on PM shift , he slept for 5 hrs and last COWS was 9 and CIWA 9. He is asleep in bed at this time, breathing even and unlabored, call light within reach. Continue to follow MD plan of care and offer support and encouragement.
[2018-07-26 08:00] VITALS: BP 116/60
--- NOTE | 2018-07-26 08:20 | NUR ---
COWS 8 CIWA 9 Patient presents with increased anxiety, body aches, restlessness and fatigue Scheduled Valium and Subutex given along with PRN Robaxin 750mg Po
--- NOTE | 2018-07-26 08:21 | NUR ---
PRN Robaxin 750mg PO given for body aches 03/22
[2018-07-26] MEDS: METHOCARBAMOL 750 MG TABLET PO PRN ×2 (08:23→20:40)
[2018-07-26] MEDS: MULTIVITAMINS,THERAPEUTIC TABLET PO SCH (08:26)
[2018-07-26] MEDS ORDERED: BUPRENORPHINE HCL 2 MG TAB.SUBL SL SCH (09:00)
[2018-07-26] MEDS ORDERED: PHENOBARBITAL 60 MG TABLET PO SCH (09:00)
[2018-07-26] MEDS ORDERED: DIAZEPAM 5 MG TABLET PO ONE (09:00)
--- NOTE | 2018-07-26 09:20 | NUR ---
PRN Reassess Patient states Robaxin moderately effective, pain level now 3/10
[2018-07-26] MEDS: ONDANSETRON 4 MG/2 ML VIAL IM PRN (11:24)
--- NOTE | 2018-07-26 11:26 | NUR ---
PRN Zofran 4mg IM given in Right gluteus for N/V Will reassess
[2018-07-26 12:00] VITALS: BP 107/63
--- NOTE | 2018-07-26 12:26 | NUR ---
PRN Reassess Patient resting in bed, states N/V has ceased, Zofran 4mg IM effective
--- NOTE | 2018-07-26 12:31 | NUR ---
COWS 10 CIWA 14 Patient presents with increased anxiety, body aches, restlessness, N/V and fatigue PRN Zofran 4mg IM given @ 1125
[2018-07-26 15:36] LABS: BILIRUBIN,DIRECT 0.1 mg/dL (0.0-0.2); BILIRUBIN,TOTAL 0.2 mg/dL (0.2-1.0); TOTAL PROTEIN, SERUM 6.6 g/dL (6.4-8.2)
[2018-07-26 16:00] VITALS: BP 113/41
--- NOTE | 2018-07-26 16:00 | NUR ---
COWS 9 CIWA 12 Patient presents with increased anxiety, body aches, restlessness, Nausea and fatigue
--- NOTE | 2018-07-26 19:01 | NUR ---
End Of Shift Patient is a 22yr old male who was admitted to [facility] on 07/21/18 for a medically supervised withdrawal from Benzodiazepines (Xanax) and Opiates ( Heroin IV/Insufflations and Oxycodone) and also states he was abusing Marijuana. he has completed a 5 day Subutex taper and 4 day Valium taper and will be discharged in the morning to " [facility]". PRN medications given this shift: Zofran IM and Robaxin. His withdrawal symptoms presents as generalized body aches, lower back pain, nausea, restlessness and lethargy. He has attended groups today and is interacting appropriately with his peers. His last COWS was 9 and CIWA 12 @ 1600. He had a fluid intake of 2550 ML, 4 Voids and 0 BM. Continue to follow MD plan of care and offer support and encouragement. Endorsed to shift commander.
--- NOTE | 2018-07-26 19:47 | NUR ---
START OF SHIFT NOTE Rcvd report from outgoing nurse. Pt is a 22 y/o male A/O to person, place, time, and person. Pt was admitted for medically supervised withdrawal from Benzodiazepines and Opiates. Pt completed a 5 day Subutex and 4 day Valium taper. Pt has been presenting w/ body aches, sweats, chills, restlessness, anxiety, depressed and withdrawn mood, and a flat affect. PRN Robaxin and Zofran IM were given and noted effective by outgoing nurse. Last CIWA 12 and COWS 9 @ 1600. Call light is within reach. Pt will continue to be monitored and needs met.
[2018-07-26 20:07] VITALS: BP 123/58
--- NOTE | 2018-07-26 20:09 | NUR ---
CIWA AND COWS ASSESSMENT CIWA 12 and COWS 9. Pt has been presenting w/ body aches, sweats, chills, restlessness, anxiety, depressed and withdrawn mood, and a flat affect. V/S: T:98.9, P:60, RR:16, SPO2:96, BP:123/54.
--- NOTE | 2018-07-26 20:40 | NUR ---
PRN BENADRYL, CLONIDINE, VISTARIL, AND ROBAXIN ADMINISTRATION Benadryl 50mg for sleep, Clonidine 0.1mg and Vistaril 50mg for anxiety and agitation, and Robaxin 750mg for body aches were given. Pt c/o 5/10 body aches and racing thoughts. Will reassess pt in 1 hr.
--- NOTE | 2018-07-26 21:40 | NUR ---
PRN BENADRYL, CLONIDINE, ROBAXIN, AND VISTARIL REASSESSMENT Pt is in bed. Pt states relief from anxiety and body aches. Pt also states he feels like he is about to fall asleep. Will continue monitor pt.
--- NOTE | 2018-07-27 00:12 | NUR ---
CIWA AND COWS DEFERRED. V/S REFUSED Pt is in bed w/ his eyes closed. pt's respirations are unlabored and even.
--- NOTE | 2018-07-27 04:10 | NUR ---
CIWA AND COWS DEFERRED. V/S REFUSED Pt is in bed w/ his eyes closed. Pt's respirations are unlabored and even.
--- NOTE | 2018-07-27 07:01 | NUR ---
END OF SHIFT NOTE Endorsed pt to oncoming nurse. Pt is a 22 y/o male A/O to person, place, time, and person. Pt was admitted for medically supervised withdrawal from Benzodiazepines and Opiates. Pt completed a 5 day Subutex and 4 day Valium taper. Pt is being discharged on 07/27. Pt continues presenting w/ body aches, sweats, chills, restlessness, anxiety, depressed and withdrawn mood, and a flat affect. Pt denies any S/I or H/I. PRN Robaxin, Benadryl, Clonidne, and Vistaril were given and noted effective. Pts fluid intake was 2888ml and he slept for 8hrs. Last CIWA 12 and COWS 9 @ 1999. Call light is within reach.
--- NOTE | 2018-07-27 07:35 | NUR ---
Start Of Shift Patient is a 22yr old male who was admitted to [facility] on 07/21/18 for a medically supervised withdrawal from Benzodiazepines (Xanax) and Opiates ( Heroin IV/Insufflation and Oxycodone) and also states he was abusing Marijuana. he has completed a 5 day Subutex taper and 4 day Valium taper and will be discharged to " [facility] " this AM. PRN Robaxin,Vistaril, Clonidine and Benadryl were given on PM shift , he slept for 8 hrs and last COWS was 9 and CIWA 12. He is asleep in bed at this time, breathing even and unlabored, call light within reach. Continue to follow MD plan of care and offer support and encouragement.
[2018-07-27 08:00] VITALS: BP 103/58
--- NOTE | 2018-07-27 08:00 | NUR ---
COWS 9 CIWA 11 Patient presents with increased anxiety, body aches, restlessness and fatigue
[2018-07-27] MEDS: MULTIVITAMINS,THERAPEUTIC TABLET PO SCH (08:04)
--- NOTE | 2018-07-27 09:41 | NUR ---
Discharge Note patient signed and dated all DC paperwork, all personal belongings placed in zip tied belongings bag. VS stable, states no SI/HI at this time. Patient ambulated off the unit @ 0941 and was picked up by " [facility] " for transport to " [facility] " .
== END 2018-07-27 09:41 | disposition other institution (70) | DRG 895 ==
LOC: SRC 20:28
PROVIDERS: ADMIT Family Medicine Addiction Medicine; ATTEND Family Medicine Addiction Medicine
PROC: HZ2ZZZZ Detoxification Services for Substance Abuse Treatment (ICD-10-PCS; principal; 2018-07-21)
PROC: HZ31ZZZ Individual Counseling for Substance Abuse Treatment, Behavioral (ICD-10-PCS; 2018-07-22)
PROC: HZ41ZZZ Group Counseling for Substance Abuse Treatment, Behavioral (ICD-10-PCS; 2018-07-23)
DX: F11.23 Opioid dependence with withdrawal (principal); F13.230 Sedative, hypnotic or anxiolytic dependence with withdrawal, uncomplicated; F41.1 Generalized anxiety disorder; F32.9 Major depressive disorder, single episode, unspecified; R74.0 Nonspecific elevation of levels of transaminase and lactic acid dehydrogenase [LDH]; I95.9 Hypotension, unspecified; R00.1 Bradycardia, unspecified; Z91.89 Other specified personal risk factors, not elsewhere classified; F12.10 Cannabis abuse, uncomplicated
CPT/HCPCS: 36415; 70030-TC; 80307; 80346; 80349; 80361; 83735; 84443; 85025; 86592; 86705; 86803; 87340; 87806; 90686; G0480; J1885; J2405; J8499; Q0162; Q0163

== ENCOUNTER 2018-10-08 18:23 | Inpatient (IN) | payer BC, OTHER ==
[~2018-10-08] VITALS: Ht 182.9 cm; Wt 108.9 kg
[2018-10-08] MEDS ORDERED: BUPRENORPHINE HCL 2 MG TAB.SUBL SL PRN (20:00)
[2018-10-08] MEDS ORDERED: ONDANSETRON 4 MG/2 ML VIAL IM PRN (20:00)
[2018-10-08] MEDS ORDERED: DICYCLOMINE HCL 20 MG TABLET PO PRN (20:00)
[2018-10-08] MEDS ORDERED: ONDANSETRON ODT 4 MG TAB.RAPDIS SL PRN (20:00)
[2018-10-08] MEDS ORDERED: DIAZEPAM 5 MG TABLET PO PRN (20:00)
[2018-10-08] MEDS ORDERED: LORAZEPAM 2 MG/1 ML VIAL IM PRN (20:00)
[2018-10-08] MEDS ORDERED: LOPERAMIDE HCL 2 MG CAPSULE PO PRN ×2 (20:00)
[2018-10-08] MEDS ORDERED: DIAZEPAM 10 MG TABLET PO PRN ×2 (20:00)
[2018-10-08] MEDS ORDERED: ACETAMINOPHEN 325 MG TABLET PO PRN (20:00)
[2018-10-08] MEDS ORDERED: MAGNESIUM HYDROXIDE 30 ML LIQUID UDC PO PRN (20:00)
[2018-10-08] MEDS ORDERED: CLONIDINE HCL 0.1 MG TABLET PO PRN (20:00)
[2018-10-08] MEDS ORDERED: IBUPROFEN 600 MG TABLET PO PRN (20:00)
[2018-10-08] MEDS ORDERED: diphenhydrAMINE 50 MG CAPSULE PO PRN (20:00)
[2018-10-08] MEDS ORDERED: MAG HYDROX/AL HYDROX/SIMETH 30 ML LIQUID UDC PO PRN (20:00)
[2018-10-08] MEDS ORDERED: MIRALAX 17 GM POWD.PACK PO PRN (20:00)
[2018-10-08 20:15] LABS: BASOPHILS % (AUTO) 0.4 % (0.0-2.0); EOSINOPHILS # (AUTO) 0.1 K/uL (0.0-0.7); EOSINOPHILS % (AUTO) 1.2 % (0.0-7.0); HEMATOCRIT 40.6 % (36.7-47.1); LYMPHOCYTES # (AUTO) 2.7 K/uL (20.0-40.0); LYMPHOCYTES % (AUTO) 40.4 % (20.5-51.5); MEAN CORPUSCULAR HEMOGLOBIN 30.1 uug (23.8-33.4); MEAN CORPUSCULAR HGB CONC 35 g/dL (32.5-36.3); MONOCYTES # (AUTO) 0.3 K/uL (2.0-10.0); MONOCYTES % (AUTO) 4.7 % (0.0-11.0); NEUTROPHILS # (AUTO) 3.6 K/uL (1.8-8.9); NEUTROPHILS % (AUTO) 53.3 % (38.5-71.5); PLATELET COUNT (AUTO) 276 K/uL (152-348); RED BLOOD CELL COUNT(AUTO) 4.66 MIL/uL (4.06-5.63); WHITE BLOOD COUNT (AUTO) 6.8 K/uL (3.6-10.2)
--- NOTE | 2018-10-08 20:15 | NUR ---
INTAKE ASSESSMENT BP: 131/65, HR:88, RR:17, SpO2:99% on RA, T:97.8 F Pt is stable and able to be admitted on the unit. Unit protocols regarding medications and vital signs every 4 hours were explained. Pt verbalized understanding. Will continue admission upon arrival on the unit.
--- NOTE | 2018-10-08 20:15 | NUR ---
ADMISSION NOTE Patient is a 22 year old male admitted on 10/08/2018 at 2003 to [facility] for medically supervised withdrawal from Benzos and opiates. Patient has a psychiatric history of anxiety, depression, and borderline personality disorder. The patient is awake, alert, and oriented x4 and is verbally responsive. Patient reports that he has been consuming about 4 mg of Xanax per day for the past 2 months and about 24 to 32 mg of suboxone per day for the past 6-8 weeks. He is able to comprehend and answer all questions appropriately and is cooperative with interview questions and therapeutic plan. He is noted to be anxious, restless, diaphoretic, disheveled, and tired. Initial COWS and CIWA assessment deferred due to patient being currently intoxicated. Patient is on a regular diet, is full code, and has no known allergies. Substance Abuse History: 1) Xanax: Patient stated that he has been consuming about 4 mg of Xanax per day for 2 months. He stated that he just started using Xanax about 7 years ago and his last use was several hours ago on 10/08/2018 at 1300 where he ingested 1 mg. 2) Suboxone: Patient stated that he has been consuming about 24 to 32 mg of Suboxone for the past 6 to 8 weeks. He first started taking this about 3.5 months ago. His last use was on 10/08/2018 at 0900 where he ingested about 16 mg. Patient stated that he has been to several other treatment centers with limited success. He was at a residential facility called [facility] in March of 2017 which lasted 28 days and he was sober for 3 more weeks after that. Then he was going to [facility], another residential facility, in March of 2018. This stay lasted for 32 days until the facility was shut down and he was immediately transferred to [facility]. This was a Sober Living IOP that he started going to in March 2018 and he would go about 3 days per week until July 10, 2018. He said that he was not very successful here since he started taking Oxycontin about 2 weeks before the treatment ceased. He was also admitted to [facility] for a 10 day inpatient stay from Aug 02 to Aug 12, 2018 which is where he received a flu shot and PNA shot. He was also admitted to [facility] some time ago and was detoxing off of heroin, oxycodone, dilaudid, morphine, and fentanyl. Patient has various reason for taking these substances and various reasons which make it difficult for him to stop. He states that he first started taking opiates like heroin, oxycodone, etc due to the pain he started having due to injuries. "It was really hard to put in time being sober because I was in so much pain. But I really need to stop and detox from all this shit. I haven't been happy in a really long time. Its been really hard these past few years with my anxiety and depression and maybe if I get clean, I'll start to feel happy again." Patient stated that his social relationships and his job performance have been affected by his substance use. He states "My good sober friends don't want to hang out with me anymore since they see me as a junkie. The only people that wanna hang out with me are junkies and I don't wanna hang out with them so I've pretty much been alone lately." He also states that he has been asked by his employers to stop taking substances so he can focus more on his job. The manager finance at his sober living facility has also told him that he may be kicked out of the facility if he doesn't sober up. With all of these things that he mentioned, he states that he has a lot of reasons why he wants to get clean and stay clean. Patient also stated that he has had a history of overdose and a 5150. While he was with his parents, they thought that he had overdosed so they had him brought to a hospital. Patient overdosed on Xanax with no intention of a suicide attempt, but was placed on a 5150 hold with the suspicion that he intended to commit suicide. The patient states that his family does not have a significant history with substance abuse, but he is unsure about their history since both of his parents were adopted by their families. The patient is 6'0" and weighs 240 lbs per standing scale. Skin is dry, intact, and warm to touch. Capillary refill is <3 seconds. PERRLA is present bilaterally with pupils at 4 mm. Breathing is even and unlabored. Lungs are clear to auscultation bilaterally. Abdomen is soft and nondistended and bowel sounds are present in all 4 quadrants. Initial vital signs are as follows: BP: 131/65, HR:88, RR:17, SpO2:99% on RA, T:97.8 F The patient was oriented to the unit at 2002 on 10/08/2018. He was provided instructions regarding unit policies and procedures. Fall and safety precautions initiated and maintained. Bed is in the lowest position with wheels locked and bilateral side rails raised. Call light is within reach. Will continue to monitor. Addendum: 10/09/18 at 1001 by HAILEY QUIROZ RN Additional Medical History Patient reports that he had a Xanax withdrawal-induced seizure in July 2016. He was taken to the ED at [facility] and was given a prescription for Keppra that he took for approximately 2 months.
[2018-10-08 20:32] LABS: ETHANOL < 3 MG/DL (0-0)
[2018-10-08 20:33] LABS: ALANINE AMINOTRANSFERASE 52 U/L (16-63); ALKALINE PHOSPHATASE 70 U/L (50-136); ASPARTATE AMINOTRANSFERASE 26 U/L (15-37); BILIRUBIN,TOTAL 0.5 mg/dL (0.2-1.0); CARBON DIOXIDE 29 mmol/L (21-32); CREATININE 1.1 mg/dL (0.6-1.3); GLUCOSE 127 mg/dL (74-106); MAGNESIUM 1.7 mg/dL (1.8-2.4); TOTAL PROTEIN, SERUM 7.6 g/dL (6.4-8.2); UREA NITROGEN, BLOOD 13 mg/dL (7-18)
[2018-10-08 20:36] LABS: *AMPHETAMINE, URINE NEGATIVE (NEGATIVE); *BARBITURATE, URINE NEGATIVE (NEGATIVE); *CANNABINOID, URINE POSITIVE (NEGATIVE); *COCCAINE, URINE NEGATIVE (NEGATIVE); *OPIATE, URINE NEGATIVE (NEGATIVE); *PHENCYCLIDINE SCREEN,URINE NEGATIVE (NEGATIVE); CHLORIDE 102 mmol/L (98-107); POTASSIUM 4.2 mmol/L (3.5-5.1)
[2018-10-08] MEDS: MULTIVITAMINS,THERAPEUTIC TABLET PO SCH (20:50)
[2018-10-08 22:47] LABS: THYROID STIMULATING HORMONE 2.002 mIU/mL (0.358-3.740)
[2018-10-09] VITALS: BP 126/64
--- NOTE | 2018-10-09 | NUR ---
COWS AND CIWA DEFERRED Patient continues to present with intoxication. He is noted lying in bed with eyes closed and even, unlabored respirations. Vital signs taken and COWS/CIWA assessment deferred. HOB and bilateral side rails raised for safety. Will continue to monitor.
[2018-10-09 04:00] VITALS: BP 110/53
--- NOTE | 2018-10-09 04:00 | NUR ---
COWS = 6, CIWA = 5 Patient is noted to be mildly anxious, restless, with fine tremors, agitated, and drowsy. Will continue to monitor.
--- NOTE | 2018-10-09 07:22 | NUR ---
END OF SHIFT Patient is a 22 year old male admitted for medically supervised withdrawal from benzos and opiates with secondary diagnoses of anxiety, depression, and borderline personality disorder. During the shift, the patient was noted to be intoxicated, anxious, restless, and with fine tremors. Last COWS is 6 and last CIWA is 5. No PRNs were requested or given. Patient was admitted on this shift on 10/08/2018 at 2003 and was oriented to the unit. Patient was cooperative, had some difficulty concentrating, and disheveled. Patient provided a urine sample and blood draw was done. Patient slept for about 6 hours. Call light is within reach. All safety measures in place. Bed is in a low position with wheels locked. Endorsed to oncoming AM nurse.
[2018-10-09 08:00] VITALS: BP 115/64
--- NOTE | 2018-10-09 08:00 | NUR ---
Start of Shift Notes/COWS/CIWA Assessment: Endorsement received from night nurse. Patient is a 22 year old male admitted for BZO and opiate withdrawal who was placed on PRN Valium and 5-day Subutex taper as ordered with first dose to be given this AM. Per night report, no PRNs given. Last COWS 6/CIWA 5. Slept for a total of 6 hours. Received patient in his room. Alert and oriented x 4. He is noted with facial flushing, gross tremors, restlessness, sweating and pupil dilation. He is also complaining of 5/10 generalizes myalgia/joint aches and is noted with increased anxiety and increased agitation. Redirected as needed. COWS 15/CIWA 12 at this time. He was encouraged to maintain his personal hygiene and space due to poor regards to hygiene m/b dirty fingernails and clothes. Educated patient on his current plan of care for the day and his medication regimen. Encouraged oral fluid intake and encouraged group participation to learn new skills to prevent relapse. All needs met and attended. Will continue to monitor closely.
[2018-10-09] MEDS: MULTIVITAMINS,THERAPEUTIC TABLET PO SCH (08:43)
[2018-10-09] MEDS: METHOCARBAMOL 750 MG TABLET PO PRN (08:43)
[2018-10-09] MEDS: BUPRENORPHINE HCL 2 MG TAB.SUBL SL SCH ×4 (08:43→21:11)
--- NOTE | 2018-10-09 08:43 | NUR ---
Valium 10mg PO/Robaxin 750 mg PO given: PRN Valium 10 mg PO given for CIWA 12, due to anxiety, gross tremors, and sweats as well as Robaxin 750 mg PO for complains of 5/10 generalized myalgia/joint pain. Will monitor for effectiveness.
[2018-10-09] MEDS ORDERED: MAGNESIUM OXIDE 400 MG TABLET PO ONE (09:00)
[2018-10-09] MEDS ORDERED: TUBERCULIN,PURIF.PROT.DERIV. 5 TU/0.1 ML TEST ID ONE (09:00)
[2018-10-09] MEDS ORDERED: 5 DAY TAPER BUPRENORPHINE -SERENITY PROTOCOL SL PRN (09:00)
--- NOTE | 2018-10-09 09:43 | NUR ---
Re-assessment: Valium and Robaxin Patient verbalizes relief from myalgia and rates his pain a 2 out of 10. CIWA 10, he continues to appear anxious but redirectable. Gross tremors still noted. Kept in a safe environment. CIWA score reduced. PRN Valium and Robaxin effective.
--- NOTE | 2018-10-09 11:17 | NUR ---
Therapist prompted client to attend group therapy.
[2018-10-09] MEDS ORDERED: 5 DAY PHENOBARBITAL TAPER -SERENITY PROTOCOL PO PRN (11:30)
[2018-10-09 12:00] VITALS: BP 108/44
--- NOTE | 2018-10-09 12:10 | NUR ---
COWS/CIWA Assessment: COWS 10/CIWA 10, patient continues to present with s/s of withdrawal m/b gross tremors, restlessness, myalgia, yawning, nasal stuffiness, anxiety, agitation and generalized discomfort. Will medicate patient as ordered. Will initiate 5-day Phenobarbital at 1500 today on top of 5-day Subutex.
[2018-10-09] MEDS: PHENOBARBITAL 60 MG TABLET PO SCH ×2 (14:02→21:11)
[2018-10-09 16:00] VITALS: BP 114/57
--- NOTE | 2018-10-09 16:30 | NUR ---
COWS/CIWA Assessment: COWS 9/CIWA 9, patient continues to present with s/s of withdrawal m/b gross tremors, restlessness, myalgia, nasal stuffiness, anxiety, agitation and generalized discomfort. Will medicate patient as ordered.
--- NOTE | 2018-10-09 19:19 | NUR ---
End of Shift Notes: Patient initiated his 5-day Subutex and 5-day Phenobarbital taper as ordered. No adverse reactions noted. VS monitored closely. No significant abnormalities noted. Withdrawal symptoms were closely monitored. Initial COWS 15/ 12, patient presented with facial flushing, yawning, pupil dilation, anxiety, agitation, restlessness, myalgia, yawning, chills, hot flashes and generalized discomfort. Medicated patient with Valium 10 mg and Robaxin 750 mg PO at 0843 with help. Last COWS / 9. Patient verbalizes that Subutex and Phenobarbital has been effective in reducing his withdrawal symptoms. He denies S/I or H/I or AV hallucinations. Appetite good. Unable to participate in group and activities due to his withdrawal symptoms. All needs met and attended. Will continue to monitor closely
--- NOTE | 2018-10-09 19:30 | NUR ---
Start of Shift Patient Received. Per endorsement, patient is noted to be a 22 year old male that continues on a modified Phenobarbital and modified Subutex taper. Patient was noted to an abnormal lab value of Magnesium which was supplemented. MRSA was collected with results pending. Patient received PRN Valium 10mg and Robaxin with medication noted to be effective. Last noted COWS 9 and CIWA 9. Upon rounds patient is noted to be in bed awake, alert and verbally responsive. Patient is in bed with lights off and watching TV. He appears to be flat, disheveled, with depressed, worried affect. Patient is able to verbalize that tapered medications have been effective in minimizing signs and symptoms of withdrawals. He continues to be monitored for increased sweats, intermittent chills, increased anxiety, agitation, restlessness, body aches, and tremulous. Patient denies suicidal ideations or hallucinations. He is noted to be withdrawn and unable to participate in group or social activities due to withdrawal symptoms. All needs attended to promptly. Will continue plan of care as ordered.
[2018-10-09 20:40] VITALS: BP 131/76
--- NOTE | 2018-10-09 20:40 | NUR ---
COWS and CIWA Assessment Patient continues to be monitored for increased signs and symptoms of Opiate and Benzo withdrawal. Tapered medications continue as ordered. Patient appears to be flat, disheveled, with depressed, worried affect. He continues to be monitored for increased sweats, agitation, restlessness, body aches intermittent chills, increased anxiety, , and bilateral tremors. All needs attended to promptly. Will continue to monitor.
[2018-10-10 00:07] VITALS: BP 128/73
--- NOTE | 2018-10-10 00:10 | NUR ---
COWS and CIWA Assessment Patient continues to be monitored for increased signs and symptoms of Opiate and Benzo withdrawal. Tapered medications continue as ordered. He continues to be monitored for increased sweats, increased yawning, agitation, restlessness, intermittent body aches intermittent chills, increased anxiety, , and bilateral tremors. Patient denies need for medication at the moment. All needs attended to promptly. Will continue to monitor.
--- NOTE | 2018-10-10 04:18 | NUR ---
COWS, CIWA and Vitals Patient is noted in bed with eyes closed. Breathing even and non labored. No signs of restlessness or facial grimacing noted. Patient refused vitals. COWS and CIWA not able to be completed as per order. Will continue to monitor.
--- NOTE | 2018-10-10 07:07 | NUR ---
End of Shift Patient is in bed with eyes closed. Breathing even and non labored. Patient is noted to be a 22 year old male that continues on a modified Phenobarbital and modified Subutex taper. No PRN medications administered. Last noted COWS 6 and CIWA 7. Patient denies suicidal ideations or hallucinations. He appears to be flat, disheveled, with depressed, worried affect. Patient is able to verbalize that tapered medications have been effective in minimizing signs and symptoms of withdrawals. He continues to be monitored for increased sweats, intermittent chills, increased anxiety, agitation, restlessness, body aches, and tremulous. He is noted to be withdrawn and isolative to room. Patient noted to sleep a total of 7 hours. All needs attended to promptly. Will endorse to continue plan of care as ordered.
--- NOTE | 2018-10-10 07:26 | NUR ---
Start of shift note; Received report from night nurse. Patient is a 22 year old male admitted on 10/08/18 for Benzodiazepine and Opiate withdrawals. Patient is currently resting with eyes closed, respirations of 18, no SOB noted. Patient was placed on 5 day Subutex and 5 day Phenobarbital taper, tolerating medications well. Patient's last COWS score is 6 and CIWA of 7 per endorsement. No PRN medication given last night. Patient slept for 7 hours. All safety measures secured. Will re-assess when patient. Will continue to monitor patient.
[2018-10-10 07:57] LABS: MAGNESIUM 1.8 mg/dL (1.8-2.4); POTASSIUM 4.7 mmol/L (3.5-5.1)
[2018-10-10 08:00] VITALS: BP 122/53
--- NOTE | 2018-10-10 08:00 | NUR ---
COWS and CIWA assessment; Patient is AOX4, presented with anxiety, agitation, complaining of muscle aches, intermittent nausea, offered Zofran patient refused to take PRN medication at this time. Patient is complaining of nasal stuffiness, avoidant to eye contact, fatigue and restlessness. Patient was placed on Subutex and Phenobarbital tapers to help reduce withdrawal symptoms. Will closely monitor patient. Addendum: 10/10/18 at 1027 by FUAD CARLTON RN COWS of 12 and CIWA of 11
[2018-10-10 08:07] LABS: HEPATITIS B SURFACE AG Negative (Negative)
[2018-10-10] MEDS: PHENOBARBITAL 60 MG TABLET PO SCH ×4 (08:44→20:58)
[2018-10-10] MEDS: MULTIVITAMINS,THERAPEUTIC TABLET PO SCH (08:45)
[2018-10-10] MEDS: BUPRENORPHINE HCL 2 MG TAB.SUBL SL SCH ×3 (08:45→20:58)
[2018-10-10 12:00] VITALS: BP 108/62
--- NOTE | 2018-10-10 12:00 | NUR ---
COWS and CIWA assessment; Patient's COWS is 11 and CIWA of 10 manifested by anxiety, agitation, complaining of muscle aches, intermittent stomach cramps.Patient is complaining of nasal stuffiness, avoidant to eye contact, fatigue and restlessness. Patient was placed on Subutex and Phenobarbital tapers to help reduce withdrawal symptoms. Will closely monitor patient.
[2018-10-10] MEDS: OLANZAPINE 5 MG TABLET PO PRN (15:54)
--- NOTE | 2018-10-10 15:54 | NUR ---
PRN medication; Patient is complaining of racing thoughts and appears agitated. PRN Zyprexa 5 mg PO PRN given for agitation. Will continue to monitor patient for effectiveness of medication.
[2018-10-10 16:00] VITALS: BP 118/62
--- NOTE | 2018-10-10 16:54 | NUR ---
Re-assessment; PRN Zyprexa noted to be effective. Patient is calm and comfortable at this time.
--- NOTE | 2018-10-10 18:57 | NUR ---
End of shift note; Patient is AOX4. Patient's last COWS score is 11 and CIWA of 10 manifested by anxiety, agitation, complaining of muscle aches, intermittent sweats and stomach cramps.Patient is complaining of nasal stuffiness, avoidant to eye contact, fatigue and restlessness. Patient was placed on Subutex and Phenobarbital taper to help reduce withdrawal symptoms. Medications were effective in reducing withdrawal symptoms. Patient remained compliant with treatment plan and medication regime. all safety measures secured. Will closely monitor patient. Addendum: 10/10/18 at 1859 by FUAD CARLTON RN Patient received PRN zyprexa for agitation, noted to be effective.
--- NOTE | 2018-10-10 19:15 | NUR ---
Start of Shift Note: Patient is a 22 y.o male admitted on 10/08/18 for medically supervised withdrawal from Xanax & Suboxone use. Patient is alert & oriented x4. No shortness of breath noted. He is on a 5-day Subutex and 5-day Phenobarbital and tolerating well. Last COWS is 11 CIWA 10. PRN Zyprexa given during day shift. Encourage pt to increase fluid intake. Seizure and Fall precautions observed. Both side rails up for safety, Bed in lowest position and call light within pts reach. Educated patient of current plan of care and medication regimen. Will continue to monitor patient.
[2018-10-10 20:00] VITALS: BP 115/53
--- NOTE | 2018-10-10 20:00 | NUR ---
COWS & CIWA Assessment Patient appears disheveled and unkempt, has a flat and guarded affect. He is noted with anxiety, agitation, chills, sweating, flushed face, generalized body aches, fine tremors and mild headache. COWS 10 CIWA 12 noted.
[2018-10-10] MEDS: HYDROXYZINE PAMOATE 25 MG CAPSULE PO PRN (20:58)
[2018-10-10] MEDS: METHOCARBAMOL 750 MG TABLET PO PRN (20:58)
--- NOTE | 2018-10-10 20:58 | NUR ---
PRN RObaxin & Vistaril Patient complains of generalized body aches and anxiety. PRN RObaxin and Vistaril administered as ordered. WIll monitor for effectiveness of medication.
--- NOTE | 2018-10-10 21:58 | NUR ---
PRN Reassessment Patient verbalized decreased in anxiety and pain from 5/10 to 3/10 after medication administration. Pt in bed watching TV and appears calm & comfortable. Will continue to monitor patient.
[2018-10-11] VITALS: BP 118/56
[2018-10-11] MEDS: OLANZAPINE 5 MG TABLET PO PRN ×2 (00:33→21:46)
[2018-10-11] MEDS: HYDROXYZINE PAMOATE 25 MG CAPSULE PO PRN ×3 (00:36→21:44)
--- NOTE | 2018-10-11 00:36 | NUR ---
PRN Zyprexa & Motrin Patient appears anxious and agitated. He is restless in bed and unable to fall asleep, pt reported having racing thoughts. He also complained of generalized body aches and headache. PRN Zyprexa and Motrin administered as ordered. Will continue to monitor patient. COWS 9 CIWA 13.
--- NOTE | 2018-10-11 01:36 | NUR ---
PRN Reassessment Pt asleep at this time and appears comfortable. No facial grimacing noted. No acute distress noted. Will continue to monitor patient.
--- NOTE | 2018-10-11 07:08 | NUR ---
End of Shift Note: Pt is a 22 y.o male admitted for Opiate & Benzo withdrawal. He continues to be on a 5-day Subutex and 5-day Phenobarbital taper and tolerating well. He is noted with withdrawal symptoms such as anxiety, agitation, chills, sweating, flushed face, generalized body aches, fine tremors and headache. PRN Motrin, Vistaril, Robaxin & Zyprexa given as ordered. All medications effective. Last COWS 9 CIWA 13 @ 0000. All due medications given and all needs attended. Safety precautions observed. Pt slept for a total of 8 hours. Fluid intake 2091ml. Voided 5x with no BM noted. Will endorse pt to day shift nurse.
--- NOTE | 2018-10-11 07:30 | NUR ---
Start of shift Pt is here for medically supervised withdrawal of benzos and opiates. Pt on a 5 day Subutex and 5 day Phenobarbital taper. At 2400 Last COWS 9 and CIWA 13. Pt slept 8 hours. Pt was first seen asleep laying flat. Resp even and unlabored. Pt arousable to voice and light touch. Denies c/o distress at this time. Encouraged Pt to participate in group therapy sessions today to identify positive coping skills to maintain sobriety. All safety measures in place, bed locked/low position. Pt Full Code and NKA. Will continue to monitor for withdrawal symptoms.
[2018-10-11 08:00] VITALS: BP 97/50
--- NOTE | 2018-10-11 08:21 | NUR ---
COWS is 9 and CIWA 11- Pt presents with anxiety, agitation, fatigue, malaise, muscle aches, and fine tremors. Patient has avoidant to eye contact and difficulty concentrating.
[2018-10-11] MEDS ORDERED: BUPRENORPHINE HCL 2 MG TAB.SUBL SL SCH (09:00)
[2018-10-11] MEDS: PHENOBARBITAL 60 MG TABLET PO SCH ×3 (09:15→20:08)
[2018-10-11] MEDS: MULTIVITAMINS,THERAPEUTIC TABLET PO SCH (09:15)
--- NOTE | 2018-10-11 10:46 | NUR ---
Therapist prompted client to attend group therapy sessions.
[2018-10-11 12:00] VITALS: BP 112/57
--- NOTE | 2018-10-11 12:01 | NUR ---
Endorsed patient care Endorsed patient to incoming nurse. Pt tolerating Subutex and Phenobarbital taper today. At 0800 Last COWS 9 and CIWA 11. Pt presents with fatigue, anhedonia, headache, fine tremors, anxiety sweats and chills. All safety measures in place, bed locked/low position. Pt Full Code and NKA. Will continue to monitor for withdrawal symptoms.
--- NOTE | 2018-10-11 12:02 | NUR ---
Assumed Care// Assessment: Endorsement received from transferring nurse. Patient is a 22 year old male admitted for BZO and opiate withdrawal who was placed on a 5-day Subutex and 5-day Phenobarbital taper as ordered. No adverse reactions noted. In the AM, patient was not given any PRNs. All due meds were given. Last 11. Patient was seen in his room at this time. He appears anxious, restless. Complains of tolerable bone/joint aches. He was also noted with gross tremors to BUE and intermittent perspiration. Generally complains of discomfort and fatigue. COWS / 11 at this time. Educated patient on his current plan of care at this time. Encouraged oral fluid intake and encouraged group participation to learn new skills to prevent relapse. All needs met and attended. Will continue to monitor closely,.
[2018-10-11] MEDS: BUPRENORPHINE HCL 2 MG TAB.SUBL SL SCH ×2 (14:07→20:08)
[2018-10-11] MEDS: METHOCARBAMOL 750 MG TABLET PO PRN ×2 (14:13→21:44)
--- NOTE | 2018-10-11 14:13 | NUR ---
Vistaril 50 mg/Robaxin 750 mg PO given: Patient was noted with complains of anxiety, restlessness and myalgia of 5/10. Non-pharmacological interventions provided but ineffective. Medicated patient with Vistaril 50 mg PO and Robaxin 750 mg PO as ordered. Will monitor for effectiveness.
--- NOTE | 2018-10-11 15:13 | NUR ---
Re-assessment: Vistaril/Robaxin Patient verbalizes relief from anxiety and rates his myalgia a 2 out of 10. PRN Vistaril and Robaxin effective.
[2018-10-11 16:00] VITALS: BP 131/71
--- NOTE | 2018-10-11 17:04 | NUR ---
COWS/CIWA Assessment: COWS 8/CIWA 9, patient continues to present with s/s of withdrawal m.b anxiety, agitation, tremors, facial flushing, fatigue, flat affect, myalgia, chills, hot flashes and generalized discomfort. Will medicate patient as ordered.
--- NOTE | 2018-10-11 18:59 | NUR ---
End of Shift Notes: Patient continues to be on 5-day Subutex and 5-day Phenobarbital taper as ordered. No adverse reactions noted. VS monitored closely. No significant abnormalities noted. Withdrawal symptoms were closely monitored. Initial COWS 9/CIWA 11, patient presented with facial flushing, yawning, pupil dilation, anxiety, agitation, restlessness, myalgia, yawning, chills, hot flashes and generalized discomfort. Last COWS /CI 9. Patient verbalizes that Subutex and Phenobarbital has been effective in reducing his withdrawal symptoms. He denies S/I or H/I or AV hallucinations. Medicated patient with Vistaril and Robaxin at 1413 with help. Appetite good. Unable to participate in group and activities due to his withdrawal symptoms. All needs met and attended. Will continue to monitor closely
--- NOTE | 2018-10-11 19:30 | NUR ---
Start of Shift Patient Received. Per endorsement, patient is a 22 year old male that continues on a modified Subutex and Phenobarbital taper. Patient received PRN Robaxin and Vistaril with medications noted to be effective. Last noted CIWA 9 and COWS 8. Upon rounds patient is noted in his room awake and watching TV in a dark room. Patient appear flat with depressed affect. He verbalizes increased anxiety, agitation, restlessness, chills, sweats, increased yawning, and intermittent body aches. Patient is able to verbalize that taper medication has been effective in minimizing signs and symptoms of withdrawal. Patient denies any suicidal ideations or auditory of visual hallucinations. Reviewed 2100 medications with patient and he was able to verbalize understanding. All needs met and attended. Will continue plan of care as ordered.
--- NOTE | 2018-10-11 20:00 | NUR ---
COWS and CIWA Assessment Patient continues to be monitored for increased signs and symptoms of Benzo and Opiate withdrawal. He is able to verbalize that taper medications have been effective in minimizing signs and symptoms. Patient appears flat with depressed affect. He verbalizes increased anxiety, agitation, restlessness, chills, sweats, increased yawning, intermittent body aches, and insomnia. Patient is able to verbalize that taper medication has been effective in minimizing signs and symptoms of withdrawal.
[2018-10-11 20:05] VITALS: BP 115/69
--- NOTE | 2018-10-11 21:50 | NUR ---
PRN Medication Administration Patient is noted to verbalize increase anxiety, agitation, and body aches. PRN Vistaril, Robaxin, and Zyprexa administered. Will continue to monitor.
--- NOTE | 2018-10-11 22:50 | NUR ---
PRN Medication Reassessment Patient is noted in bed with eyes closed. Breathing even and non labored. No signs of restlessness or facial grimacing noted. PRN Vistaril, Robaxin, and Zyprexa noted to be effective. Will continue to monitor.
--- NOTE | 2018-10-12 00:45 | NUR ---
COWS and CIWA Assessment Patient is noted in bed with eyes closed. Breathing even and non labored. No signs of restlessness or facial grimacing noted. patient refused vitals. CIWA and COWS not able to be completed as per order. Will continue to monitor.
--- NOTE | 2018-10-12 06:55 | NUR ---
End of Shift Patient is a 22 year old that continues on a modified Subutex and Phenobarbital taper. Patient received PRN Robaxin, Vistaril, and Zyprexa with medications noted to be effective. Last noted CIWA 12 and COWS 8. Patient noted to sleep a total of 6 hours. Patient continues to be monitored for increased signs and symptoms of withdrawal that consist of increased anxiety, agitation, restlessness, chills, sweats, increased yawning, and intermittent body aches. Patient appears flat, with depressed, worried affect. Patient is able to verbalize that taper medication has been effective in minimizing signs and symptoms of withdrawal. Patient denies any suicidal ideations or auditory of visual hallucinations. All needs met and attended. Will endorse to continue plan of care as ordered.
--- NOTE | 2018-10-12 07:30 | NUR ---
START OF SHIFT NOTE Received report from night nurse, Jammienax,Subutex taper withdrawal. Patient continues with 5 days Subutex and 5 days phenobarbital taper tolerating well. Per endorsement patient received PRN Vistaril, Robaxin, Zyprexa effective epr night nurse, last CIWA-, -8, slept for 6 hours. Received patient asleep responsive to verbal and tactile stimuli. Breathing normal no SOB noted. Skin intact warm and dry to to touch. All safety measures in place. Will cont with plan of care. Addendum: 10/12/18 at 1644 by THAIS MYERS [facility]-Received report from night nurse, 22 year old male admitted for Xanax/Subutex taper tolerated well.
[2018-10-12 08:00] VITALS: BP 121/67
[2018-10-12] MEDS: PHENOBARBITAL 60 MG TABLET PO SCH ×2 (09:00→21:12)
[2018-10-12] MEDS: MULTIVITAMINS,THERAPEUTIC TABLET PO SCH (09:00)
[2018-10-12] MEDS: BUPRENORPHINE HCL 2 MG TAB.SUBL SL SCH ×3 (09:00→21:12)
--- NOTE | 2018-10-12 09:00 | NUR ---
COWS,CIWA ASSESSMENT CIWA-10, COWS-12, patient presented with anxiety, agitation, restless, bilateral hand tremors, sweats, chills, runny nose, anhedonia, fatigue. Patient was given his schedule medications. Will cont to monitor.
[2018-10-12 12:00] VITALS: BP 110/62
--- NOTE | 2018-10-12 14:09 | NUR ---
COWS,CIWA ASSESSMENT Patient continues to exhibited s/s of withdrawal such as anxiety, agitation, fatigue restless, bilateral hand tremors, sweats, chills, runny nose, CIWA-9, COWS-11. Patient was given his schedule medications. Will cont to monitor.
[2018-10-12] MEDS: METHOCARBAMOL 750 MG TABLET PO PRN ×2 (14:14→23:12)
--- NOTE | 2018-10-12 14:14 | NUR ---
PRN ROBAXIN/VISTARIL Patient c/o of anxiety, agitation, restless, muscle spasms 5/10. PRN Robaxin 750mg PO and Vistaril 50mg PO given as ordered. Will cont to monitor.
--- NOTE | 2018-10-12 15:15 | NUR ---
ROBAXIN/VISTARIL REASSESSMENT Patient reported medications were effective muscle spasms lower to 2/10 and anxiety, agitation, restless, subsided.
[2018-10-12 16:00] VITALS: BP 121/61
--- NOTE | 2018-10-12 19:22 | NUR ---
END OF SHIFT NOTE Patient is alert awake oriented x4 patient is 22 year old male admitted for Xanax and Subutex withdrawals and continues Subutex taper tolerating well. During shift patient presented with muscle spasms, anxiety, fatigue, anhedonia. Patient received PRN Robaxin for myalgia, Vistaril for anxiety along with his scheduled medications tolerated well. Patient encouraged to participate in therapy sessions. Patient educated in medication regimen. Encouraged patient to socialized with others. Patient noted attended groups activities. Encourage PO fluids as tolerated. Last CIWA-10, COWS-10 at 1600 . All safety measures in place. Endorse patient to night nurse in stable condition.
--- NOTE | 2018-10-12 19:40 | NUR ---
START OF SHIFT Patient is a 22-year-old male admitted on 10/08/18 for benzodiazepine and opiate withdrawal. Patient is currently on a 5-day Phenobarbital taper and a 5-day Subutex taper, tolerating well; today is day 4 of both tapers. Patients last COWS was 10 and last CIWA was 10, per endorsement. Patient received PRN Robaxin and PRN Vistaril today, both noted to be effective. Upon assessment, patient appears quiet and is soft spoken. Patient complains of mild headache, some anxiety, and difficulty sleeping. Patient makes poor eye contact. Patient is on fall and seizure precautions with seizure history related to withdrawal, most recently in July 2016. Safety measures in place, side rails up x2, bed locked in low position, call light within reach. Will continue to monitor.
[2018-10-12 20:00] VITALS: BP 127/62
--- NOTE | 2018-10-12 20:00 | NUR ---
COWS 9, CIWA 11 Patient reports chills and sweats, mild headache, stuffy nose, intermittent stomach cramps without nausea, and anxiety with restlessness. Current COWS 9, CIWA 11. Will administer meds as ordered.
[2018-10-12] MEDS: OLANZAPINE 5 MG TABLET PO PRN (23:12)
[2018-10-12] MEDS: HYDROXYZINE PAMOATE 25 MG CAPSULE PO PRN (23:12)
--- NOTE | 2018-10-12 23:12 | NUR ---
PRN ROBAXIN, VISTARIL, & ZYPREXA Patient reports body aches and anxiety. Patient is agitated and restless, unable to fall asleep. PRN Robaxin, Vistaril, and Zyprexa given PO. Safety measures in place, side rails up x2, bed locked in low position, call light within reach. Will monitor for effectiveness.
[2018-10-13] VITALS: BP 114/60
--- NOTE | 2018-10-13 00:12 | NUR ---
COWS & CIWA DEFERRED, PRN ROBAXIN, VISTARIL, & ZYPREXA REASSESSMENT Patient is observed sleeping in bed, eyes closed, respirations even and unlabored. COWS and CIWA deferred at this time; to be assessed while patient is awake. Unable reassess PRN medication effectiveness at this time. Safety measures in place, side rails up x2, bed locked in low position, call light within reach. Will continue to monitor.
--- NOTE | 2018-10-13 04:00 | NUR ---
VITALS REFUSED, COWS & CIWA DEFERRED Patient refused vitals at this time, COWS and CIWA deferred. Respirations even and unlabored, 14/min. Safety measures in place, side rails up x2 bed locked in low position, call light within reach. Will continue to monitor.
--- NOTE | 2018-10-13 07:20 | NUR ---
END OF SHIFT Patient is a 22-year-old male admitted on 10/08/18 for benzodiazepine and opiate withdrawal. Patient is currently on a 5-day Phenobarbital taper and a 5-day Subutex taper, tolerating well; today will be 5th and final day of both tapers. Patients last COWS was 9 and last CIWA was 11. Patient received PRN Robaxin, PRN Vistaril, and PRN Zyprexa; all noted to be effective. Patient slept for 10 hrs, total intake of 1,210mL, void x2, stool x0. Patient is on fall and seizure precautions with seizure history related to withdrawal, most recently in July 2016. Safety measures in place, side rails up x2, bed locked in low position, call light within reach. Will endorse to day shift.
--- NOTE | 2018-10-13 07:35 | NUR ---
START OF SHIFT Pt is a 22 yr old male, admitted on 10/08/18 for Benzo/Opiate withdrawal and is on 5 day Subutex and 5 day Phenobarbital taper as ordered. Received report from cage shift manager nurse. Pt received Zyprexa PRN, Robaxin PRN, and Vistaril PRN during the night. Last COWS score was 9 and CIWA score was 11. Pt slept for 10 hrs and remains in bed sleeping with respirations even and unlabored. Skin is intact, warm and dry to touch. Safety precautions observed. Will continue to monitor.
[2018-10-13 08:00] VITALS: BP 113/54
[2018-10-13] MEDS ORDERED: PHENOBARBITAL 60 MG TABLET PO SCH (09:00)
[2018-10-13] MEDS ORDERED: BUPRENORPHINE HCL 2 MG TAB.SUBL SL SCH (09:00)
[2018-10-13] MEDS: MULTIVITAMINS,THERAPEUTIC TABLET PO SCH (09:52)
--- NOTE | 2018-10-13 10:05 | NUR ---
COWS AND CIWA ASSESSMENT Pt is c/o increase fatigue, anxiety, agitation, lack of appetite and chills. Pt is observed wtih flat affect and avoidant in eye contact. COWS was 7 and CIWA score was 7. Encouraged increase fluid intake. Will continue to monitor.
--- NOTE | 2018-10-13 10:38 | NUR ---
Therapist prompted client to attend group therapy.
[2018-10-13 12:00] VITALS: BP 106/49
--- NOTE | 2018-10-13 12:00 | NUR ---
COWS AND CIWA ASSESSMENT Pt is noted with increase fatigue, flat affect and avoidant in eye. Pt is c/o anxiety and chills.. COWS score is 4 and CIWA score is 6. Encouraged increase fluid intake. Will continue to monitor.
[2018-10-13] MEDS ORDERED: METH-406 PO (13:02)
[2018-10-13] MEDS ORDERED: OLAN5TAB3 PO (13:02)
[2018-10-13] MEDS ORDERED: HYDR-3895 PO (13:02)
[2018-10-13 16:30] VITALS: BP 135/66
--- NOTE | 2018-10-13 19:25 | NUR ---
END OF SHIFT Pt is a 22 yr old male, AA&Ox4. Pt was admitted on 10/08/18 for Benzo/Opiate withdrawal and completed a 5 day Subutex taper and 5 day Phenobarbital taper as ordered. Pt has been observed with increase fatigue and remained in bed throughout the day. Pt was encouraged to attend group therapy but pt refused. Pt was c/o anxiety, sweats, chills and lack of appetite. Pt is observed with flat affect and avoidant in eye contact. Last COWS score was 6 and CIWA score was 6 1600. Pt is to be discharged tomorrow to [facility]. Safety precautions observed. Endorsed to retail shift leader nurse to continue with care.
[2018-10-13 20:00] VITALS: BP 111/60
--- NOTE | 2018-10-13 20:00 | NUR ---
Start of Shift Patient appears melancholic and is avoids conversation. Patient verbalized feeling sad at times. Patient appears disheveled. He verbalized that he is hopeful regarding his discharged in the morning. He is able to state some coping mechanisms to avoid relapse. Patient has anxiety at this time, with PRN medication offered and will be administered. No c/o pain at this time. Fall, universal, seizure and safety prec in place. Call light within reach. Last COWS=6, CIWA=6. Will continue to monitor.
[2018-10-13] MEDS: OLANZAPINE 5 MG TABLET PO PRN (20:30)
--- NOTE | 2018-10-13 20:31 | NUR ---
PRN Zyprexa Patient c/o anxiety and is noted to be easily agitated. Administered Zyprexa 5 mg PO PRN. Will reassess.
--- NOTE | 2018-10-13 21:30 | NUR ---
Zyprexa reassess Patient verbalized "feeling better". Patient is noted to be less anxious.
--- NOTE | 2018-10-14 | NUR ---
COWS and CIWA deferred Patient asleep and with no SOB nor facial grimacing noted. JOHN and HAMZAHWA deferred per MD order.
--- NOTE | 2018-10-14 04:00 | NUR ---
COWS and CIWA deferred Patient asleep and with no SOB nor facial grimacing noted. JOHN and HAMZAHWA deferred per MD order.
--- NOTE | 2018-10-14 07:18 | NUR ---
End of Shift Patient continues to appear melancholic and verbalized experiencing intermittent anxiety. He is hopeful of his recovery and looks forward to his discharge today. PRN Zyprexa administered during the shift. No c/o pain at this time. Fall, universal, seizure and safety prec in place. Call light within reach. Last COWS=6, CIWA=6 and slept for 7 hours. Endorsed to AM shift nurse for continuity of care.
--- NOTE | 2018-10-14 07:35 | NUR ---
START OF SHIFT Pt is a 22 yr old male, admitted on 10/08/18 for Benzo/Opiate withdrawal and completed a 5 day Subutex and 5 day Phenobarbital taper as ordered. Received report from security shift supervisor nurse. Pt received Zyprexa PRN during the night for sleep. Medication was effective and slept for 7 hrs. Last COWS score was 6 and CIWA score was 6. Pt is currently in bed sleeping with respirations even and unlabored. Skin is intact, warm and clammy to touch. Pt is to be discharged today to [facility]. Will continue to f/u. Safety precautions observed. Will continue to monitor.
[2018-10-14 08:00] VITALS: BP 113/50
[2018-10-14] MEDS: MULTIVITAMINS,THERAPEUTIC TABLET PO SCH (09:19)
--- NOTE | 2018-10-14 10:00 | NUR ---
DISCHARGE NOTE Pt is a 22 yr old male, AA&Ox4. Pt was admitted on 10/08/18 for Opiate/Benzo withdrawal and completed a 5 day phenobarbital and 5 day Subutex taper as ordered. Pt was cooperative with medication regimen and plan of care. Pt states, "I feel good" prior to discharged. Pt was observed wtih flat affect. Last COWS score was 4 and CIWA score was 5 at 0900. Pt was educated on discharged summary and prescriptions. Pt was able to verbalize understanding. Pt was escorted off the unit at 0945 in stable condition. Pt was discharged to [facility]. Pt left with all belongings and valuables. No home medication was brought.
== END 2018-10-14 09:45 | disposition home or self-care (01) | DRG 895 ==
LOC: SRC 18:58
PROVIDERS: ADMIT Family Medicine Addiction Medicine; ATTEND Family Medicine Addiction Medicine
PROC: HZ2ZZZZ Detoxification Services for Substance Abuse Treatment (ICD-10-PCS; principal; 2018-10-08)
PROC: HZ31ZZZ Individual Counseling for Substance Abuse Treatment, Behavioral (ICD-10-PCS; 2018-10-11)
PROC: HZ41ZZZ Group Counseling for Substance Abuse Treatment, Behavioral (ICD-10-PCS; 2018-10-11)
DX: F11.23 Opioid dependence with withdrawal (principal); G40.509 Epileptic seizures related to external causes, not intractable, without status epilepticus; F13.230 Sedative, hypnotic or anxiolytic dependence with withdrawal, uncomplicated; F60.3 Borderline personality disorder; Z79.899 Other long term (current) drug therapy; F41.1 Generalized anxiety disorder; Z91.89 Other specified personal risk factors, not elsewhere classified; F32.9 Major depressive disorder, single episode, unspecified; E83.42 Hypomagnesemia
CPT/HCPCS: 36415; 70030-TC; 80307; 80346; 80349; 83735; 84443; 85025; 86580; 86592; 86705; 86803; 87340; 87806; A4663; G0480; J8499